=== PATIENT | male | born 1965 | race Caucasian/White ===

== ENCOUNTER 2020-02-06 15:12 | Inpatient (IN) | payer MEDICAID, OTHER ==
[~2020-02-06] VITALS: Ht 180.3 cm; Wt 73.6 kg
[2020-02-06] MEDS ORDERED: RISP0.5T3 PO (15:21)
[2020-02-06 16:34] LABS: BASO # 0.1 10^3/uL (0.0-0.2); BASO % 0.3 % (0.0-1.0); EOS % 0.1 % (0.0-3.0); HEMATOCRIT 40.6 % (42.0-52.0); HEMOGLOBIN 13.2 g/dl (13.5-17.5); LYMPH # 0.5 10^3/uL (1.5-5.0); LYMPH % 2.8 % (24.0-44.0); MEAN CORPUSCULAR HEMOGLOBIN 29.3 pg (27.0-33.0); MEAN CORPUSCULAR HGB CONC 32.5 g/dl (32.0-36.5); MEAN CORPUSCULAR VOLUME 90.2 fl (80.0-96.0); MONO # 1.1 10^3/uL (0.0-0.8); MONO % 6.2 % (0.0-5.0); NEUTROPHILS # 15.9 10^3/uL (1.5-8.5); NEUTROPHILS % 89.6 % (36.0-66.0); PLATELET COUNT, AUTOMATED 300 10^3/uL (150-450); WHITE BLOOD COUNT 17.7 10^3/uL (4.0-10.0)
[2020-02-06 16:58] LABS: ALBUMIN 2.7 GM/DL (3.2-5.2); ALT/SGPT 31 U/L (12-78); BILIRUBIN,DIRECT 0.6 MG/DL (0.0-0.2); BILIRUBIN,TOTAL 1.1 MG/DL (0.2-1.0); BLOOD UREA NITROGEN 33 MG/DL (7-18); CALCIUM LEVEL 9.2 MG/DL (8.5-10.1); CARBON DIOXIDE LEVEL 28 MEQ/L (21-32); CHLORIDE LEVEL 96 MEQ/L (98-107); CREATININE FOR GFR 1.09 MG/DL (0.70-1.30); GLOMERULAR FILTRATION RATE > 60.0 (>56); GLUCOSE, FASTING 166 MG/DL (70-100); POTASSIUM SERUM 4.1 MEQ/L (3.5-5.1); SODIUM LEVEL 130 MEQ/L (136-145); TOTAL PROTEIN 7.4 GM/DL (6.4-8.2)
[2020-02-06] MEDS ORDERED: ceFAZolin SOD 1 GM in D5W MINI-BAG PLUS 50 ML IV ONE (18:00)
[2020-02-06] MEDS ORDERED: NS 1,000 ML IV ONE (18:45)
--- NOTE | 2020-02-06 19:58 | HPEPDOC ---
[facility] Medical History & Physical Date of Admission Feb 06, 2020 Date of Service: Feb 06, 2020 Attending Physician: STEVEN WATKINS MD History and Physical CHIEF COMPLAINT: Right lower extremity swelling and redness HISTORY OF PRESENT ILLNESS: Ed is a 54-year-old male with PMHx of chronic venous insufficiency and an unspecified psychiatric disorder on risperidone, who presented to the ED after being sent over by his wound care provider (Dr. Barbosa) from an outpatient appointment earlier today. On Thursday (02/03), patient reports he began experiencing erythema superior to lower extremity dressings with accompanying decreased sensation over right lower extremity and chills. He subsequently p resented to his previously scheduled outpatient wound care appointment today (02/05), at which point Dr. Barbosa debrided multiple areas of the right lower extremity and subsequently instructed patient to present to the ED for admission and IV antibiotic administration. Patient endorses accompanying nausea with no vomiting over the past few days as well as decreased oral intake. Upon presentation to the ED, patient had leukocytosis (WBC 17.7) with neutrophilia, tachycardia, and had a lactic acid of 2.1. Initial blood cultures 2 were obtained along with a wound culture. One dose of IV Ancef was administered. Patient is being admitted under the care of the hospitalist service for sepsis secondary to right lower extremity cellulitis. PAST MEDICAL HISTORY: Chronic venous insufficiency, follows with wound care as outpatient Unspecified psychiatric disorder; patient reports potentially could be a paranoid disorder, he takes risperidone at home History of left pleural effusion requiring thoracentesis PAST SURGICAL HISTORY: Thoracentesis for left-sided pleural effusion in early Multiple minor debridements of bilateral lower extremities as outpatient with wound care for chronic venous insufficiency SOCIAL HISTORY: Marital status: Single. Resides at home with his mother. No children. Unemployed. Remote history of chewing tobacco use. No current history of tobacco use. [place] ges 3 shots of scotch per month. Denies any illegal drug use currently or previously. FAMILY HISTORY: Father: , unspecified valvular heart disease; congestive heart failure; alcoholism; smoker Mother: Living, unspecified kidney issue Siblings: One sister ALLERGIES: Please see below. REVIEW OF SYSTEMS: REVIEW OF SYSTEMS: CONSTITUTIONAL: Doses intermittent chills. Denies fever, night sweats, recent unintentional change in weight EYES: Denies any visual issues ENT: Denies rhinorrhea, dysphagia, or odynophagia CARDIOVASCULAR: Denies chest pain, chest pressure, or palpitations RESPIRATORY: Denies shortness of breath, cough, purpura, chest pain, hemoptysis GASTROINTESTINAL: Endorses moderate intermittent nausea. Denies abdominal pain, vomiting, hematemesis GENITOURINARY: Denies dysuria or hematuria MSK: Denies myalgias or arthralgias INTEGUMENTARY: Endorses right lower extremity redness, warmth and swelling as mentioned in the HPI NEUROLOGY: Decreased sensation right lower extremity. Denies paresthesias. PSYCHIATRIC: Denies depressed mood or episodes of rigoberto. ENDOCRINE: Endorses some cold intolerance and dry mouth. LYMPHATIC: Denies any new lumps or bumps anywhere HOME MEDICATIONS: Please see below. PHYSICAL EXAMINATION: VITAL SIGNS: Please see below. GENERAL APPEARANCE: Pleasant male. Somewhat disheveled appearance. NAd. A & O x3. HEENT: NC, AT. Matted hair. Non-injected, anicteric sclera. PERRLA. Dry MM. NECK: Trachea midline. No lymphadenopathy. CARDIOVASCULAR: Tachycardic rate, regular rhythm. NL s1, s2. No m/r/g apprec iated. LUNGS: CTA b/l w/ no adventitious breath sounds appreciated. Symmetric chest expansion. Breathing room air. ABDOMEN: Soft, NT and ND. Hypoactive BS. No rigidity or hepatosplenomegaly. MUSCULOSKELETAL: 5/5 muscle strength of UE and LE b/l EXTREMITIES: Warmth and erythema of skin overlying right knee extending proximally up the quad. There is a roughly 5cm diameter ulcer just inferior to rt patella approx 1 in deep with some purulent material. Erythema with skin breakdown and maceration of distal rt LE with fresh areas of debridement and some minor bleeding. Rt pedal edema and erythema. Hands are cold b/l with long fingernails. NEUROLOGICAL: Decreased sensation to light touch of distal RLE. A&O x3. No focal deficits appreciated. Non-dysarthric speech. PSYCHIATRIC: Would go off on minor tangents while speaking at times, but responded appropriately to redirection. LABORATORY DATA: Please see below. MICROBIOLOGY: Please see below. ASSESSMENT & PLAN: 54yo male with h/o chronic venous insufficiency and unspecified psych dx on risperidone presenting with sepsis 2/2 RLE cellulitis. #Sepsis 2/2 RLE cellulitis -Positive SIRS (WBC > 12k plus HR > 100) with left shift and lactic of 2.1 -given one dose of Ancef in ED -will continue with 1gm Ancef IV q8h -Empiric vancomycin added in setting of purulent skin ulceration; will adjust based on culture results -Two initial BCx and wound cx pending -1L NS bolus given with scheduled NS IVF hydration to follow -Advanced wound care consult placed; based on their recommendations, may consider sx consult #Unspecified psychiatric condition -pt reports he's been told he has some form of paranoid disorder; take risperidone as outpt -c/w home risperidone #DVT prophylaxis: SC heparin ATTENDING ATTESTATION: Patient seen and examined independently. Agree with resident's note. Vital Signs Vital Signs Date Time Temp Pulse Resp B/P (MAP) Pulse Ox O2 Delivery O2 Flow Rate FiO2 02/06/20 18:20 135/82 (99) 02/06/20 17:27 103 16 97 02/06/20 15:12 99.7 Room Air Laboratory Data Labs 24H Laboratory Tests 2 02/06/20 16:17: Immature Granulocyte % (Auto) 1.0, Neutrophils (%) (Auto) 89.6H, Lymphocytes (%) (Auto) 2.8L, Monocytes (%) (Auto) 6.2H, Eosinophils (%) (Auto) 0.1, Basophils (%) (Auto) 0.3, Neutrophils # (Auto) 15.9H, Lymphocytes # (Auto) 0.5L, Monocytes # (Auto) 1.1H, Eosinophils # (Auto) 0.0, Basophils # (Auto) 0.1, Nucleated Red Blood Cells % (auto) 0.0, Anion Gap 6L, Glomerular Filtration Rate > 60.0, Calcium Level 9.2, Total Bilirubin 1.1H, Direct Bilirubin 0.6H, Aspartate Amino Transf (AST/SGOT) 36, Alanine Aminotransferase (ALT/SGPT) 31, Alkaline Phosphatase 158H, Total Protein 7.4, Albumin 2.7L, Albumin/Globulin Ratio 0.6 02/06/20 16:18: Lactic Acid Level 2.1*H CBC/BMP Laboratory Tests 02/06/20 16:17 Microbiology Microbiology 02/06/20 Blood Culture, Received Pending 02/06/20 Gram Stain, Received Pending 02/06/20 Wound Culture, Received Pending 02/06/20 Blood Culture, Received Pending Home Medications Scheduled Dimethicone (Vaniply) 70 Gm Oint...g., 0 DOSE TOP DAILY L.acidoph/L.bulg/B.bif/S.therm (Bacid Caplet) 1 Each Tablet, 1 TAB PO WM Levofloxacin (Levaquin) 750 Mg Tablet, 750 MG PO DAILY Risperidone (Risperidone) 0.5 Mg Tablet, 0.5 MG PO QHS Scheduled PRN Acetaminophen (Acetaminophen) 500 Mg Tablet, 1,000 MG PO Q6H PRN for pain Ibuprofen (Ibuprofen) 600 Mg Tablet, 600 MG PO Q6H PRN for PAIN Allergies Coded Allergies: No Known Allergies (Unverified , 02/06/20) A-FIB/CHADSVASC A-FIB History Current/History of A-Fib/PAF?: No Current PO Anticoag Therapy: No RAIN SOSA D.O. Feb 06, 2020 19:58 STEVEN WATKINS MD Feb 29, 2020 13:39
[2020-02-06 20:30] VITALS: BP 135/70
[2020-02-06] MEDS ORDERED: VANCOMYCIN HCL 1,000 MG, VIAL MATE ADAPTER 1 EACH in D5W 250 ML IV ONE (20:30)
[2020-02-06] MEDS ORDERED: VANCOMYCIN HCL 500 MG in D5W MINI-BAG PLUS 100 ML IV ONE (21:30)
[2020-02-06] MEDS: HEPARIN SOD (PORCINE) 5000UNITS/ML 1ML VIAL/SYRINGE SC SCH (22:32)
[2020-02-06] MEDS: NS 1,000 ML IV SCH (22:33)
[2020-02-06] MEDS: risperiDONE 0.5 MG TAB PO SCH (23:02)
[2020-02-07] MEDS: ceFAZolin SOD 1 GM in D5W MINI-BAG PLUS 50 ML IV SCH ×3 (03:02→17:51)
[2020-02-07 06:00] VITALS: BP 116/74
[2020-02-07] MEDS ORDERED: VANCOMYCIN HCL 1,000 MG, VIAL MATE ADAPTER 1 EACH in D5W 250 ML IV SCH (06:00)
[2020-02-07] MEDS: NS 1,000 ML IV SCH ×2 (06:02→16:22)
[2020-02-07 08:17] LABS: ERYTHROCYTE SEDIMENTATION RATE 82 mm/hr (0-20)
[2020-02-07 08:36] LABS: ALT/SGPT 27 U/L (12-78); BILIRUBIN,TOTAL 1.1 MG/DL (0.2-1.0); BLOOD UREA NITROGEN 20 MG/DL (7-18); CALCIUM LEVEL 8.1 MG/DL (8.5-10.1); CARBON DIOXIDE LEVEL 27 MEQ/L (21-32); CHLORIDE LEVEL 102 MEQ/L (98-107); CREATININE FOR GFR 0.75 MG/DL (0.70-1.30); GLOMERULAR FILTRATION RATE > 60.0 (>56); GLUCOSE, FASTING 105 MG/DL (70-100); POTASSIUM SERUM 3.9 MEQ/L (3.5-5.1); SODIUM LEVEL 135 MEQ/L (136-145); TOTAL PROTEIN 5.8 GM/DL (6.4-8.2)
[2020-02-07 08:56] LABS: BASO % 0.2 % (0.0-1.0); EOS # 0.1 10^3/uL (0.0-0.5); EOS % 0.3 % (0.0-3.0); HEMATOCRIT 35.8 % (42.0-52.0); HEMOGLOBIN 11.8 g/dl (13.5-17.5); LYMPH # 0.9 10^3/uL (1.5-5.0); LYMPH % 5.6 % (24.0-44.0); MEAN CORPUSCULAR HEMOGLOBIN 29.4 pg (27.0-33.0); MEAN CORPUSCULAR VOLUME 89.3 fl (80.0-96.0); MONO # 1.4 10^3/uL (0.0-0.8); MONO % 8.8 % (0.0-5.0); NEUTROPHILS # 13.3 10^3/uL (1.5-8.5); PLATELET COUNT, AUTOMATED 301 10^3/uL (150-450); RED BLOOD COUNT 4.01 10^6/uL (4.30-6.10); WHITE BLOOD COUNT 15.8 10^3/uL (4.0-10.0)
[2020-02-07] MEDS: HEPARIN SOD (PORCINE) 5000UNITS/ML 1ML VIAL/SYRINGE SC SCH ×2 (09:55→22:09)
--- NOTE | 2020-02-07 10:57 | REPVR ---
PROCEDURE INFORMATION: Exam: US Duplex Right Lower Extremity Veins, Limited Exam date and time: 02/07/20 (10:46am) Age: 54 years old Clinical indication: Right leg swelling TECHNIQUE: Imaging protocol: Real-time Duplex ultrasound of the Right Lower Extremity with 2-D saravia scale, color Doppler flow and spectral waveform analysis with image documentation. Limited examination was focused on the right lower extremity veins. COMPARISON: No relevant prior studies available FINDINGS: Right deep veins: Unremarkable. The common femoral, femoral, proximal profunda femoral and popliteal veins are patent without thrombus. Normal Doppler waveforms. Normal compressibility and/or augmentation response. Right superficial veins: Unremarkable. Saphenofemoral junction is patent without thrombus. Soft tissues: Unremarkable. IMPRESSION: No evidence of deep vein thrombosis. Electronically signed by: Marychuy Oquendo On 02/07/2020 10:56:37 AM
[2020-02-07] MEDS: ACETAMINOPHEN TAB 650MG DOSE (2X325MG) PO PRN ×2 (13:57→22:09)
[2020-02-07 14:00] VITALS: BP 167/82
[2020-02-07 14:10] VITALS: BP 132/90
[2020-02-07] MEDS: DIMETHICONE 2% OINTMENT(VANICREAM) 70GM TUBE TOP SCH (14:32)
--- NOTE | 2020-02-07 17:39 | IPNPDOC ---
Date Seen The patient was seen on 02/07/20. Progress Note SUBJECTIVE: Ed was seen and examined as morning by the hospitalist service while lying in bed. He feels as though the intensity of his right lower extremity skin redness has decreased overnight and he denies any significant fever or chills. He tolerated his dinner last evening without any issues. He states the nausea he's been dealing with for the past few days, was not present overnight. He denies any current, or overnight, chest pain, palpitations, shortness of breath, cough, abdominal pain, vomiting or diarrhea. OBJECTIVE PHYSICAL EXAMINATION: VITAL SIGNS: Please see below. GENERAL APPEARANCE: Pleasant male. NAD. A & O x3. HEENT: NC, AT. Non-injected, anicteric sclera. MMM. NECK: Trachea midline. No lymphadenopathy. CARDIOVASCULAR: Regular rate, regular rhythm. NL s1, s2. No m/r/g appreciated. LUNGS: CTA b/l w/ no adventitious breath sounds appreciated. Symmetric chest expansion. Breathing room air. ABDOMEN: Soft, NT and ND. Normoactive BS throughout. No rigidity or hepatosplenomegaly. EXTREMITIES: Decreased erythema intensity and warmth of right lower extremity s kin today versus yesterday. Purulent material still present in ulcer just distal to patella. Erythema with skin breakdown and maceration of distal rt LE, as well as Rt pedal edema and erythema, appear relatively unchanged from yesterday's exam. NEUROLOGICAL: A&O x3. No focal deficits appreciated. Non-dysarthric speech. LABORATORY DATA, IMAGING STUDIES, MICROBIOLOGY: -No evidence of deep vein thrombosis on right lower extremity duplex venous ultrasound -Preliminary wound culture results show moderate amount of strep biopsies growth; Gram stain was negative DVT prophylaxis ordered: Yes, patient receiving heparin ASSESSMENT AND PLAN: This is a 54-year-old male with h/o chronic venous insufficiency and unspecified psychiatric disorder who presented to the ED on 02/05 upon outpatient recommen dation of wound care for RLE redness and warmth and was admitted for sepsis secondary to cellulitis. #RLE cellulitis -Continuing with Ancef every 8 hours -We discontinued the vancomycin today after negative MRSA screen result -Right lower extremity venous duplex ultrasound showed no evidence of DVT -Radiographs of tibia and fibula, as well as complete knee x-rays, ordered today to assess for possibility of osteomyelitis; if radiographs are questionable for OM, will follow up with MRI. -If radiographs positive for OM, we will involve infectious disease. If radiographs negative for OM, we'll likely switch patient to oral cephalexin -Patient had telemedicine visit from wound care today (Dr. Barbosa). Wound care placing surgical consult for potential deeper debridement of hematoma underlying ulcer. In addition to addressing ulcer and hematoma, gentle debridement of distal right lower extremity will be performed. Bilateral heel float boots, as well as protein supplementation with meals ordered. -prn acetaminophen added today as patient had some pain and discomfort when dressings were removed. -Preliminary wound culture results showed moderate amount of strep pyogenes growth which is covered by Ancef -No growth after 24 hours on one initial blood culture with other culture still pending -ESR and CRP ordered this morning were significant elevated, yet. WBC trending down. -Microcytic anemia present and is likely secondary to acute infectious process -Initial lactic was 2.1 with 4 hour repeat last evening coming down to 1.4 #Unspecified psychiatric condition -pt reports he's been told he has some form of paranoid disorder; take risperidone as outpt -c/w home risperidone DISPOSITION: Pending evaluation from surgery for possible debridement of underlying ulcer hematoma as well as imaging rule out of possible osteomyelitis VS, I&O, 24H, Fishbone Vital Signs/I&O Vital Signs Date Time Temp Pulse Resp B/P (MAP) Pulse Ox O2 Delivery O2 Flow Rate FiO2 02/07/20 14:10 132/90 (104) 02/07/20 14:00 99.1 96 18 91 Room Air I&O- Last 24 Hours up to 6 AM 02/07/20 06:00 Intake Total 700 ml Output Total 700 ml Balance 0 ml Laboratory Data 24H LABS Laboratory Tests 2 02/06/20 20:54: Lactic Acid Followup at 4 Hours 1.4 02/07/20 05:37: Immature Granulocyte % (Auto) 1.1, Neutrophils (%) (Auto) 84.0H, Lymphocytes (%) (Auto) 5.6L, Monocytes (%) (Auto) 8.8H, Eosinophils (%) (Auto) 0.3, Basophils (%) (Auto) 0.2, Neutrophils # (Auto) 13.3H, Lymphocytes # (Auto) 0.9L, Monocytes # (Auto) 1.4H, Eosinophils # (Auto) 0.1, Basophils # (Auto) 0.0, Nucleated Red Blood Cells % (auto) 0.0, Erythrocyte Sedimentation Rate 82H, Anion Gap 6L, Glomerular Filtration Rate > 60.0, Calcium Level 8.1L, Total Bilirubin 1.1H, Aspartate Amino Transf (AST/SGOT) 39H, Alanine Aminotransferase (ALT/SGPT) 27, Alkaline Phosphatase 133H, C-Reactive Protein, Quantitative 27.20H, Total Protein 5.8#L, Albumin 2.0#L, Albumin/Globulin Ratio 0.5 02/07/20 06:35: Methicillin-Resist S.aureus DNA PCR NOT DETECTED CBC/BMP Laboratory Tests 02/07/20 05:37 Microbiology Microbiology 02/06/20 Blood Culture, Received Pending 02/06/20 Gram Stain - Final, Resulted 02/06/20 Wound Culture - Preliminary, Resulted Streptococcus Pyogenes Grp A 02/06/20 Blood Culture - Preliminary, Resulted No growth after 24 hours . All specim... GME ATTESTATION GME ATTESTATION My faculty preceptor for this patient encounter was physically present during the encounter and was fully available. All aspects of the patient interview, examination, medical decision making process, and medical care plan development were reviewed and approved by the faculty preceptor. The faculty preceptor is aware and concurs with the plan as stated in the body of this note and will attest to such by his/her cosignature. ATTENDING NOTE I, Benito Sunshine, have independently examined this patient and performed my own physical exam, as well as reviewed the documentation and edited where necessary. I have discussed in detail with the resident / student the findings and plan of treatment as documented by the resident / student and edited their note. I agree with their findings and treatment plan and have edited their documentation. I will continue to follow the patient during this hospital stay. RAIN SOSA D.O. Feb 07, 2020 17:39 BENITO SUNSHINE MD Feb 08, 2020 06:50
[2020-02-07 22:00] VITALS: BP 133/85
[2020-02-07] MEDS: risperiDONE 0.5 MG TAB PO SCH (22:08)
[2020-02-08] MEDS: NS 1,000 ML IV SCH ×3 (02:47→22:18)
[2020-02-08] MEDS: ceFAZolin SOD 1 GM in D5W MINI-BAG PLUS 50 ML IV SCH ×3 (02:47→17:32)
[2020-02-08 06:00] VITALS: BP 98/56
[2020-02-08 06:53] LABS: BASO % 0.3 % (0.0-1.0); EOS # 0.1 10^3/uL (0.0-0.5); EOS % 0.5 % (0.0-3.0); HEMATOCRIT 34.6 % (42.0-52.0); HEMOGLOBIN 11.2 g/dl (13.5-17.5); LYMPH # 0.8 10^3/uL (1.5-5.0); LYMPH % 5.9 % (24.0-44.0); MEAN CORPUSCULAR HEMOGLOBIN 29.6 pg (27.0-33.0); MEAN CORPUSCULAR HGB CONC 32.4 g/dl (32.0-36.5); MEAN CORPUSCULAR VOLUME 91.5 fl (80.0-96.0); MONO # 1.1 10^3/uL (0.0-0.8); NEUTROPHILS % 84.2 % (36.0-66.0); PLATELET COUNT, AUTOMATED 312 10^3/uL (150-450); RED BLOOD COUNT 3.78 10^6/uL (4.30-6.10); WHITE BLOOD COUNT 14.2 10^3/uL (4.0-10.0)
[2020-02-08 07:03] LABS: BLOOD UREA NITROGEN 11 MG/DL (7-18); CARBON DIOXIDE LEVEL 27 MEQ/L (21-32); CHLORIDE LEVEL 107 MEQ/L (98-107); GLOMERULAR FILTRATION RATE > 60.0 (>56); GLUCOSE, FASTING 102 MG/DL (70-100); POTASSIUM SERUM 3.9 MEQ/L (3.5-5.1); SODIUM LEVEL 138 MEQ/L (136-145)
[2020-02-08 08:16] LABS: ERYTHROCYTE SEDIMENTATION RATE 85 mm/hr (0-20)
[2020-02-08] MEDS: DIMETHICONE 2% OINTMENT(VANICREAM) 70GM TUBE TOP SCH (09:22)
[2020-02-08] MEDS: HEPARIN SOD (PORCINE) 5000UNITS/ML 1ML VIAL/SYRINGE SC SCH ×2 (09:22→22:17)
[2020-02-08 14:00] VITALS: BP 139/88
--- NOTE | 2020-02-08 18:03 | IPNPDOC ---
Date Seen The patient was seen on 02/08/20. Progress Note SUBJECTIVE: Ed was seen and examined this morning by the hospitalist service while lying in bed. He reports no adverse events overnight. Since admission, he has yet to have a bowel movement. He has been seen by both physical therapy and occupational therapy, but otherwise is staying mostly bed-bound. He is eating and drinking without any issues and denies any nausea. He denies any current or overnight fever, chills, night sweats, shortness of breath, chest pain, palpitations, diarrhea, or vomiting. OBJECTIVE PHYSICAL EXAMINATION: VITAL SIGNS: Please see below. GENERAL APPEARANCE: Pleasant male. NAD. A & O x3. , Responds appropriately to questions and commands. HEENT: NC, AT. Non-injected, anicteric sclera. Appears to have a lazy left eye on exam, particularly when looking upward/superiorly. MMM. NECK: Trachea midline. No lymphadenopathy. CARDIOVASCULAR: Regular rate, regular rhythm. NL s1, s2. No m/r/g appreciated. LUNGS: CTA b/l w/ no adventitious breath sounds appreciated. Symmetric chest expansion. Breathing room air. ABDOMEN: Soft, NT and ND. Normoactive BS throughout. No rigidity or hepatosplenomegaly. EXTREMITIES: There is continued decreased erythema intensity and warmth of right lower extremity skin today from previous days exams. When bandaging was peeled back, purulent material was still present in anterior samuels ulcer just inferior to the patella.. Erythema with skin breakdown and maceration of distal rt LE, as well as Rt pedal edema and erythema. The pedal edema and erythema seems marginally improved from yesterday's exam. There is also areas of skin breakdown on his left lower extremity with scant associated erythema. NEUROLOGICAL: A&O x3. No focal deficits appreciated. Non-dysarthric speech. LABORATORY DATA, IMAGING STUDIES, MICROBIOLOGY: -No evidence of deep vein thrombosis on right lower extremity duplex venous ultrasound -Preliminary wound culture results show moderate amount of strep biopsies growth; Gram stain was negative ASSESSMENT AND PLAN: This is a 54-year-old male with h/o chronic venous insufficiency and unspecified psychiatric disorder who presented to the ED on 02/05 upon outpatient recommendation of wound care for RLE redness and warmth and was admitted for sepsis secondary to cellulitis. #RLE cellulitis -Continuing with Ancef every 8 hours (Day #3) -Vancomycin was discontinued yesterday (02/06,) disease after negative MRSA screen result -Right lower extremity venous duplex ultrasound showed no evidence of DVT -Results of tibia and fibula x-rays, as well as complete knee x-ray for the right lower extremity, all came back negative for osteomyelitis. Our goal is to transfer patient to oral antibiotics soon. In preparation of discharge but we will not do this until he has been evaluated by surgery. -Patient had telemedicine visit from wound care yesterday (Dr. Barbosa). Wound care placing surgical consult for potential deeper debridement of hematoma underlying ulcer. -Hospitalist service has spoken with Dr. Gonzalez of general surgery, who will evaluate the patient tomorrow morning for possible surgical removal of hematoma -prn acetaminophen is on board for pain.. We appreciate the & recommendations from Dr. Gonzalez -Preliminary wound culture results showed moderate amount of strep pyogenes g rowth which is covered by Ancef -No growth after 24 hours on both initial blood cultures -WBC continues to trend down, as does the CRP. -Microcytic anemia present and stable over the last 24 hours. This is likely secondary to acute infectious process #Unspecified psychiatric condition -pt reports he's been told he has some form of paranoid disorder; he takes risperidone as outpt, which we have continued while in the hospital. DISPOSITION: Pending evaluation from surgery for possible debridement of underlying ulcer hematoma as well as transitioning to oral antibiotics VS, I&O, 24H, Fishbone Vital Signs/I&O Vital Signs Date Time Temp Pulse Resp B/P (MAP) Pulse Ox O2 Delivery O2 Flow Rate FiO2 02/08/20 14:00 99.2 77 18 139/88 (105) 99 Room Air I&O- Last 24 Hours up to 6 AM 02/08/20 06:00 Intake Total 2840 ml Output Total 700 ml Balance 2140 ml Laboratory Data 24H LABS Laboratory Tests 2 02/08/20 06:24: Immature Granulocyte % (Auto) 1.1, Neutrophils (%) (Auto) 84.2H, Lymphocytes (%) (Auto) 5.9L, Monocytes (%) (Auto) 8.0H, Eosinophils (%) (Auto) 0.5, Basophils (%) (Auto) 0.3, Neutrophils # (Auto) 12.0H, Lymphocytes # (Auto) 0.8L, Monocytes # (Auto) 1.1H, Eosinophils # (Auto) 0.1, Basophils # (Auto) 0.0, Nucleated Red Blood Cells % (auto) 0.0, Erythrocyte Sedimentation Rate 85H, Anion Gap 4L, Glomerular Filtration Rate > 60.0, Calcium Level 8.0L, C-Reactive Protein, Quantitative 17.90H CBC/BMP Laboratory Tests 02/08/20 06:24 Microbiology Microbiology 02/06/20 Blood Culture - Preliminary, Resulted No Growth after 48 hours. All Specime... 02/06/20 Gram Stain - Final, Complete 02/06/20 Wound Culture - Final, Complete Streptococcus Pyogenes Grp A 02/06/20 Blood Culture - Preliminary, Resulted No Growth after 48 hours. All Specime... GME ATTESTATION GME ATTESTATION My faculty preceptor for this patient encounter was physically present during the encounter and was fully available. All aspects of the patient interview, examination, medical decision making process, and medical care plan development were reviewed and approved by the faculty preceptor. The faculty preceptor is aware and concurs with the plan as stated in the body of this note and will attest to such by his/her cosignature. ATTENDING NOTE I, Benito Diaz, have independently examined this patient and performed my own physical exam, as well as reviewed the documentation and edited where necessary. I have discussed in detail with the resident / student the findings and plan of treatment as documented by the resident / student and edited their note. I agree with their findings and treatment plan and have edited their documentation. I will continue to follow the patient during this hospital stay. RAIN SOSA D.O. Feb 08, 2020 18:03 BENITO DIAZ MD Feb 09, 2020 12:50
[2020-02-08 22:00] VITALS: BP 102/63
[2020-02-08] MEDS: risperiDONE 0.5 MG TAB PO SCH (22:18)
[2020-02-08] MEDS: ACETAMINOPHEN TAB 650MG DOSE (2X325MG) PO PRN (22:28)
[2020-02-09] VITALS (7 sets, daily range): BP systolic 104–154; BP diastolic 58–91
[2020-02-09] MEDS: ceFAZolin SOD 1 GM in D5W MINI-BAG PLUS 50 ML IV SCH ×3 (02:28→17:40)
[2020-02-09 07:21] LABS: BLOOD UREA NITROGEN 9 MG/DL (7-18); CALCIUM LEVEL 8.1 MG/DL (8.5-10.1); CARBON DIOXIDE LEVEL 26 MEQ/L (21-32); CHLORIDE LEVEL 108 MEQ/L (98-107); CREATININE FOR GFR 0.57 MG/DL (0.70-1.30); GLOMERULAR FILTRATION RATE > 60.0 (>56); GLUCOSE, FASTING 96 MG/DL (70-100); SODIUM LEVEL 141 MEQ/L (136-145)
[2020-02-09 07:25] LABS: BASO % 0.3 % (0.0-1.0); EOS # 0.1 10^3/uL (0.0-0.5); EOS % 0.8 % (0.0-3.0); HEMATOCRIT 36.3 % (42.0-52.0); HEMOGLOBIN 11.7 g/dl (13.5-17.5); LYMPH % 7.4 % (24.0-44.0); MEAN CORPUSCULAR HEMOGLOBIN 29.8 pg (27.0-33.0); MEAN CORPUSCULAR HGB CONC 32.2 g/dl (32.0-36.5); MEAN CORPUSCULAR VOLUME 92.4 fl (80.0-96.0); MONO % 7.2 % (0.0-5.0); NEUTROPHILS # 10.9 10^3/uL (1.5-8.5); NEUTROPHILS % 82.8 % (36.0-66.0); PLATELET COUNT, AUTOMATED 364 10^3/uL (150-450); RED BLOOD COUNT 3.93 10^6/uL (4.30-6.10); WHITE BLOOD COUNT 13.2 10^3/uL (4.0-10.0)
[2020-02-09] MEDS: NS 1,000 ML IV SCH (08:31)
[2020-02-09] MEDS: HEPARIN SOD (PORCINE) 5000UNITS/ML 1ML VIAL/SYRINGE SC SCH ×2 (08:31→19:53)
[2020-02-09] MEDS: DIMETHICONE 2% OINTMENT(VANICREAM) 70GM TUBE TOP SCH (08:31)
--- NOTE | 2020-02-09 13:40 | CR.PDOC ---
General Surgery Consultation Date of Consultation 02/09/20 History and Physical CONSULT REPORT FOR: Dr. Diaz (hospitalist service) REASON FOR CONSULTATION: infected leg wound HISTORY OF PRESENT ILLNESS: Patient is a 54 M with long history of right leg swelling from venous hypertension and chronic wound to the right leg and foot being seen in the wound care clinic for intermittent debridements. He is currently admitted to the hospital for cellulitis and soft tissue infection of the right leg. He was last seen at the wound care clinic prior to hospitalization over partial debridement was done. On consult to Dr. Barbosa via telemedicine he recognized it an infected wound on the right leg and I was asked to debride the wound. PAST MEDICAL HISTORY: Chronic venous insufficiency, follows with wound care as outpatient Unspecified psychiatric disorder; patient reports potentially could be a paranoid disorder, he takes risperidone at home History of left pleural effusion requiring thoracentesis PAST SURGICAL HISTORY: Thoracentesis for left-sided pleural effusion in early Multiple minor debridements of bilateral lower extremities as outpatient with wound care for chronic venous insufficiency SOCIAL HISTORY: Marital status: Single. Resides at home with his mother. No children. Unemployed. Remote history of chewing tobacco use. No current history of tobacco use. Averages 3 shots of scotch per month. Denies any illegal drug use currently or previously. FAMILY HISTORY: Father: , unspecified valvular heart disease; congestive heart failure; alcoholism; smoker Mother: Living, unspecified kidney issue Siblings: One sister ALLERGIES: Please see below. HOME MEDICATIONS: Please see below. REVIEW OF SYSTEMS: Patient was noted to have intermittent low-grade fever here in the hospital despite IV antibiotics. Denies unexplained weight loss. Denies history or symptoms of diabetes, heart problems, chest pains or shortness of breath. PHYSICAL EXAMINATION: VITALS SIGNS: Please see below. GENERAL APPEARANCE:Patient seen laying on the bed, appears relatively comfortable SKIN: warm and dry. HEENT: [Normocephalic, atraumatic. [place] palpebral conjunctiva, anicteric sclerae. Lips and mucosa appear moist]. NECK: [Supple, no thyromegaly. No obvious jugular venous distention]. LUNGS: [Clear to auscultation bilaterally. No wheezing appreciated]. HEART: [No chest wall abnormalities. Regular rate and rhythm with no murmurs appreciated]. EXTREMITIES right leg is swollen, left leg looks normal. The right leg is wrapped in a compression stocking. There is roughly about a 5 x 4 cm open wound anteriorly just below the knee on the right leg with foul-smelling purulent drainage as well as necrotic tissues on the wound bed. The skin overall is thin with evidence for chronic venous stasis and venous hypertension with skin darkening. Over the dorsum of the right leg is another slightly shallower of ulcerated wound slightly heaped up edges and mild fibrin deposition also with proteinaceous the cage on the wound opening. The foot is swollen but patient able to move his toes. Denies any discomfort with movement of the toes. ANCILLARIES: . LABORATORY DATA: Please see below. IMAGING STUDIES: . IMPRESSION AND PLAN: Patient has an infected necrotic wound specifically on the right anterior leg also has a separate wound in the right foot with fibrin deposition. I will bring him to the operating room for debridement of both wounds. This is in the background setting of venous hypertension chronic leg swelling the patient is aware of difficulty of healing the wound here. Patient most likely will need follow-up chronically in the wound clinic after discharge home. Vital Signs Vital Signs Date Time Temp Pulse Resp B/P (MAP) Pulse Ox O2 Delivery O2 Flow Rate FiO2 02/09/20 06:00 99.0 68 17 104/58 (73) 100 Room Air I&Os l I&O- Last 24 Hours up to 6 AM 02/09/20 06:00 Intake Total 2280 ml Output Total 2290 ml Balance -10 ml Laboratory Data Labs 24H Laboratory Tests 2 02/09/20 06:32: Immature Granulocyte % (Auto) 1.5, Neutrophils (%) (Auto) 82.8H, Lymphocytes (%) (Auto) 7.4L, Monocytes (%) (Auto) 7.2H, Eosinophils (%) (Auto) 0.8, Basophils (%) (Auto) 0.3, Neutrophils # (Auto) 10.9H, Lymphocytes # (Auto) 1.0L, Monocytes # (Auto) 1.0H, Eosinophils # (Auto) 0.1, Basophils # (Auto) 0.0, Nucleated Red Blood Cells % (auto) 0.0, Anion Gap 7L, Glomerular Filtration Rate > 60.0, Calcium Level 8.1L, C-Reactive Protein, Quantitative 14.80H 02/09/20 11:18: Coronavirus (COVID-19)(PCR) NEGATIVE CBC/BMP Laboratory Tests 02/09/20 06:32 Microbiology Microbiology 02/06/20 Blood Culture - Preliminary, Resulted No Growth after 48 hours. All Specime... 02/06/20 Gram Stain - Final, Complete 02/06/20 Wound Culture - Final, Complete Streptococcus Pyogenes Grp A 02/06/20 Blood Culture - Preliminary, Resulted No Growth after 48 hours. All Specime... Home Medications Scheduled Risperidone (Risperidone) 0.5 Mg Tablet, 0.5 MG PO QHS, (Reported) Allergies Coded Allergies: No Known Allergies (Unverified , 02/06/20) JAKE AVINA MD Feb 09, 2020 13:13
[2020-02-09] MEDS ORDERED: LIDOCAINE 2% 100MG/5ML SDV (FOR ANES.) As Ordered ONE (14:04)
[2020-02-09] MEDS ORDERED: propofoL 200 MG/20 ML VIAL As Ordered ONE ×2 (14:04→14:24)
[2020-02-09] MEDS ORDERED: fentaNYL 100 MCG/2 ML INJECTION (J3010) As Ordered ONE (14:05)
[2020-02-09] MEDS ORDERED: MIDAZOLAM INJ 2MG/2ML VIAL (J2250 PER 1MG) As Ordered ONE (14:05)
[2020-02-09] MEDS ORDERED: BUPIVACAINE HCL 0.25% 30ML VIAL As Ordered ONE (14:21)
[2020-02-09] MEDS ORDERED: LIDOCAINE W/EPINEPHRINE 1% 20ML VIAL As Ordered ONE (14:22)
[2020-02-09] MEDS ORDERED: THROMBIN SOLN 20,000 UNITS KIT As Ordered ONE (14:37)
[2020-02-09] MEDS ORDERED: fentaNYL 100 MCG/2 ML INJECTION (J3010) IV PRN (15:15)
[2020-02-09] MEDS ORDERED: ONDANSETRON 4MG/2ML VIAL IV PRN (15:15)
[2020-02-09] MEDS ORDERED: LR 1,000 ML IV SCH (15:15)
[2020-02-09] MEDS ORDERED: NS 1,000 ML IV SCH (17:00)
[2020-02-09] MEDS: risperiDONE 0.5 MG TAB PO SCH (19:54)
--- NOTE | 2020-02-09 20:26 | IPNPDOC ---
Date Seen The patient was seen on 02/09/20. Progress Note SUBJECTIVE: Ed was seen and examined this morning by the hospitalist service while lying in bed. He was seen earlier this morning by general surgery with a plan for likely surgical debridement of his right lower extremity wounds later today. He denies any current or overnight fever, chills, or night sweats. He is eating and drinking without any issues. He is mostly been bedbound, only getting around a little bit with physical therapy using a walker. He has not had a bowel movement since admission. He continues to use bedside urinal. He denies any recent chest pain, shortness of breath, palpitations, nausea, or vomiting. He denies any numbness or paresthesias of his lower extremities. OBJECTIVE PHYSICAL EXAMINATION: VITAL SIGNS: Please see below. GENERAL APPEARANCE: Pleasant male lying in bed. NAD. A & O x3. Responds appropriately to questions and commands. HEENT: NC, AT. Non-injected, anicteric sclera. Appears to have a lazy left eye on exam, particularly when looking upward/superiorly. MMM. NECK: Trachea midline. No lymphadenopathy. CARDIOVASCULAR: Regular rate, regular rhythm. NL s1, s2. No m/r/g appreciated. LUNGS: CTA b/l w/ no adventitious breath sounds appreciated. Symmetric chest expansion. Breathing room air. ABDOMEN: Soft, NT and ND. Normoactive BS throughout. No rigidity or hepatosplenomegaly. EXTREMITIES: Overall, his right lower extremity continues to improve on a daily basis. The extent of affected skin is decreased substantially today versus prior days, and he continues to have decreased warmth and intensity of erythema. When bandaging was peeled back, purulent material was still present in anterior samuels ulcer just inferior to the patella.. Erythema with skin breakdown and maceration of distal rt LE, as well as Rt pedal edema. The pedal erythema is improved from yesterday's exam. There is also areas of skin breakdown on his left lower ex tremity with scant associated erythema. NEUROLOGICAL: A&O x3. No focal deficits appreciated. Non-dysarthric speech. LABORATORY DATA, IMAGING STUDIES, MICROBIOLOGY: -No evidence of deep vein thrombosis on right lower extremity duplex venous ultrasound -Preliminary wound culture results show moderate amount of strep biopsies growth; Gram stain was negative ASSESSMENT AND PLAN: This is a 54-year-old male with h/o chronic venous insufficiency and unspecified psychiatric disorder who presented to the ED on 02/05 upon outpatient recommendation of wound care for RLE redness and warmth and was admitted for sepsis secondary to cellulitis. #RLE cellulitis -Clinically, continues to improve on a daily basis and patient remains afebrile with downtrending WBC -We will continue with Ancef every 8 hours (Day #4), as surgical debridement by general surgery is planned for sometime later today. After debridement, we will consult the infectious disease team for further recommendations with goals of transitioning to oral antibiotics for discharge; *hospitalist service sincerely appreciate the input and recommendations from both general surgery and infectious disease -Vancomycin was discontinued on 02/06 after negative MRSA screen result -Right lower extremity venous duplex ultrasound showed no evidence of DVT -Patient was previously seen via telemedicine by wound care, whom he follows with on the outpatient basis regularly, who suggested surgical debridement -c/w prn acetaminophen for pain -Preliminary wound culture results showed moderate amount of strep pyogenes growth which is covered by Ancef -No growth after 48 hours on both initial blood cultures -WBC continues to trend down, as does the CRP. -Normocytic anemia present and stable over the last 48 hours - - likely secondary to acute infectious process #Unspecified psychiatric condition -pt reports he's been told he has some form of paranoid disorder; he takes risperidone as outpt, which we have continued while in the hospital. DISPOSITION: Pending surgical debridement later today and transition from IV to oral antibiotics VS, I&O, 24H, Fishbone Vital Signs/I&O Vital Signs Date Time Temp Pulse Resp B/P (MAP) Pulse Ox O2 Delivery O2 Flow Rate FiO2 02/09/20 19:15 98.6 89 17 114/72 (86) 100 Room Air 02/09/20 15:00 2 I&O- Last 24 Hours up to 6 AM 02/09/20 06:00 Intake Total 2280 ml Output Total 2290 ml Balance -10 ml Laboratory Data 24H LABS Laboratory Tests 2 02/09/20 06:32: Immature Granulocyte % (Auto) 1.5, Neutrophils (%) (Auto) 82.8H, Lymphocytes (%) (Auto) 7.4L, Monocytes (%) (Auto) 7.2H, Eosinophils (%) (Auto) 0.8, Basophils (%) (Auto) 0.3, Neutrophils # (Auto) 10.9H, Lymphocytes # (Auto) 1.0L, Monocytes # (Auto) 1.0H, Eosinophils # (Auto) 0.1, Basophils # (Auto) 0.0, Nucleated Red Blood Cells % (auto) 0.0, Anion Gap 7L, Glomerular Filtration Rate > 60.0, Calcium Level 8.1L, C-Reactive Protein, Quantitative 14.80H 02/09/20 11:18: Coronavirus (COVID-19)(PCR) NEGATIVE CBC/BMP Laboratory Tests 02/09/20 06:32 Microbiology Microbiology 02/09/20 Gram Stain, Received Pending 02/09/20 Wound Culture, Received Pending 02/09/20 Anaerobic Culture, Received Pending 02/09/20 Gram Stain, Received Pending 02/09/20 Wound Culture, Received Pending 02/09/20 Anaerobic Culture, Received Pending 02/06/20 Blood Culture - Preliminary, Resulted No Growth after 72 hours. All specime... 02/06/20 Gram Stain - Final, Complete 02/06/20 Wound Culture - Final, Complete Streptococcus Pyogenes Grp A 02/06/20 Blood Culture - Preliminary, Resulted No Growth after 72 hours. All specime... GME ATTESTATION GME ATTESTATION My faculty preceptor for this patient encounter was physically present during the encounter and was fully available. All aspects of the patient interview, examination, medical decision making process, and medical care plan development were reviewed and approved by the faculty preceptor. The faculty preceptor is aware and concurs with the plan as stated in the body of this note and will attest to such by his/her cosignature. ATTENDING NOTE I, Benito Sunshine, have independently examined this patient and performed my own physical exam, as well as reviewed the documentation and edited where necessary. I have discussed in detail with the resident / student the findings and plan of treatment as documented by the resident / student and edited their note. I agree with their findings and treatment plan and have edited their documentation. I will continue to follow the patient during this hospital stay. RAIN SOSA D.O. Feb 09, 2020 20:26 BENITO SUNSHINE MD Feb 10, 2020 07:14
[2020-02-10] MEDS: ceFAZolin SOD 1 GM in D5W MINI-BAG PLUS 50 ML IV SCH ×2 (01:11→09:01)
[2020-02-10 06:00] VITALS: BP 115/71
[2020-02-10 07:33] LABS: BASO % 0.4 % (0.0-1.0); EOS # 0.1 10^3/uL (0.0-0.5); EOS % 1.2 % (0.0-3.0); HEMATOCRIT 34.7 % (42.0-52.0); LYMPH # 1.2 10^3/uL (1.5-5.0); LYMPH % 11.7 % (24.0-44.0); MEAN CORPUSCULAR HEMOGLOBIN 29.1 pg (27.0-33.0); MEAN CORPUSCULAR HGB CONC 31.7 g/dl (32.0-36.5); MEAN CORPUSCULAR VOLUME 91.8 fl (80.0-96.0); MONO # 0.7 10^3/uL (0.0-0.8); MONO % 6.4 % (0.0-5.0); NEUTROPHILS # 8.2 10^3/uL (1.5-8.5); PLATELET COUNT, AUTOMATED 450 10^3/uL (150-450); RED BLOOD COUNT 3.78 10^6/uL (4.30-6.10); WHITE BLOOD COUNT 10.4 10^3/uL (4.0-10.0)
[2020-02-10 07:55] LABS: BLOOD UREA NITROGEN 6 MG/DL (7-18); CALCIUM LEVEL 8.4 MG/DL (8.5-10.1); CARBON DIOXIDE LEVEL 29 MEQ/L (21-32); CHLORIDE LEVEL 107 MEQ/L (98-107); CREATININE FOR GFR 0.58 MG/DL (0.70-1.30); GLOMERULAR FILTRATION RATE > 60.0 (>56); GLUCOSE, FASTING 97 MG/DL (70-100); SODIUM LEVEL 141 MEQ/L (136-145)
--- NOTE | 2020-02-10 08:00 | ROOPDOC ---
[facility] Report Of Operation Report of Operation DATE OF PROCEDURE: 02/09/20 PREPROCEDURE DIAGNOSES: infected ulcerated wound on right anterior lower leg and right foot, venous hypertensiion. POSTPROCEDURE DIAGNOSES: infected, ulcerated wound on right anterior lower leg to surface of muscles, infected ulcerated wound on right foot, to surface of tendons, venous hypertension. PROCEDURE: Excisional debridement of necrotic tissues, drainage of subcutaneous abscess on right anteriior lower leg, excisional debridement of necrotic tissues on dorsum of foot. SURGEON: Guido Gonzalez MD CARTON LINER: ANESTHESIA: Monitored Anesthesia Care with local anesthesia (1% lidocaine with epinephrine/1/4% Marcaine). ESTIMATED BLOOD LOSS: Approximately 30 mL. COMPLICATIONS: none. REMARKS: Patient is a 54-year-old male with chronic leg swelling, the right side worse than the left, chronic venous stasis wounds on the right leg currently admitted in the hospital for infected necrotic ulcerated wound on the leg and the right foot. PROCEDURE NOTE: Initial wound measurements on the anterior leg ulcerated wound is 6 x 4 x 1 cm with a surrounding 2 cm area of ischemic/necrotic edges, purulent drainage and necrotic wound bed. Final measurements after debridement is 8 x 6 x 1.5 cm with undermining of up to 2.5 cm laterally and superiorly laterally. The foot is swollen with an ulcerated necrotic wound measuring 5 x 4 cm initially covered with necrotic skin and small amount of brownish drainage. Final measurement is 6 x 5 cm with 2-1/2 cm depth down to the surface of the tendon which was not well defined due to the chronic granulation tissue on the wound bed without much undermining noted on the skin periphery.. DESCRIPTION OF PROCEDURE: Patient has been receiving Levaquin IV preoperatively for wound cultures obstreperous [place] on the wound was brought to the operating room, placed supine on the table. Monitoring leads placed and oxygen provided via facemask. Monitored anesthesia care started. His right foot and leg was prepped and draped in the usual sterile fashion up to the mid thigh area.We paused for a surgical timeout using both pre-incision safety checklist to verify correct patient, procedure site and additional clinical information prior to beginning the procedure Wound description as above. I started with the right anterior leg ulcerated wound which is just below the right knee. There is bogginess surrounding the wound and went pressing on this purulent drainage can be observed, but off at likewise necrotic appearing skin superiorly and laterally. This is covered with necrotic and liquefied adipose tissue. This was circumferentially infiltrated with local anesthesia. Using a 15 blade knife as well as Bovie cautery the necrotic skin as well as the necrotic subcutaneous tissue was sharply debrided. There is further necrotic and liquefied adipose tissue most prominent laterally they try the conservative skin on top of that area so there is about a 2 and after 3 cm undermining of the skin over that area after full debridement of the necrotic tissue was done. This came down to the level of the overlying muscle fascia but I did not come through the fascia or through the muscles. I then used a scratch pad to further debride the wound bed. Thrombin spray was then used for hemostasis and this was packed with moistened saline gauze temporarily. I then came down to the dorsum of the foot where he has a circumferential ulcerated wound covered with necrotic skin broken up on the edges. Again this was infiltrated with local anesthesia. The necrotic skin was excised with a 15 blade scalpel and immediately after pulling up on the skin the rest of the attached adipose tissue also came undone. This seems to come down to the level off the surface of the tendon. The tendon itself was not visible as this is invested with loose granulation tissue which points out that the chronicity of the wound. There was not much skin undermining the edges were freshened off both with the Bovie cautery as well as with the scratch pad as well as the wound bed. Again this was packed with moistened saline gauze after spraying this with thrombin. After insuring adequate hemostasis site and packed the wound with alginate. The backside of the ankle with healing stasis ulcer wounds were covered with Telfa. Kerlix roll was then used as well as Coban for compression. Patient tolerated the procedure well. He was awakened and brought to recovery room in stable condition.. GUIDO GONZALEZ MD Feb 10, 2020 08:00
[2020-02-10] MEDS: DIMETHICONE 2% OINTMENT(VANICREAM) 70GM TUBE TOP SCH (09:01)
[2020-02-10] MEDS: HEPARIN SOD (PORCINE) 5000UNITS/ML 1ML VIAL/SYRINGE SC SCH ×2 (09:01→20:41)
[2020-02-10 14:00] VITALS: BP 117/77
[2020-02-10] MEDS: AMPICILLIN SOD 2 GM in D5W MINI-BAG PLUS 100 ML IV SCH ×2 (16:48→20:41)
[2020-02-10] MEDS: risperiDONE 0.5 MG TAB PO SCH (20:40)
--- NOTE | 2020-02-10 20:57 | IPNPDOC ---
Date Seen The patient was seen on 02/10/20. Progress Note SUBJECTIVE: Ed was seen and examined this morning by the hospitalist service while lying in bed. He reports no adverse events overnight and had his first BM since admission using bedside commode. He continues to eat and drink without any issues. He remains bedbound with the exception of when OBJECTIVE PHYSICAL EXAMINATION: VITAL SIGNS: Please see below. GENERAL APPEARANCE: Pleasant male lying in bed. NAD. A & O x3. HEENT: NC, AT. Non-injected, anicteric sclera. Appears to have a lazy left eye on exam, particularly when looking upward/superiorly. MMM. NECK: Trachea midline. No lymphadenopathy. CARDIOVASCULAR: Regular rate, regular rhythm. NL s1, s2. No m/r/g appreciated. LUNGS: CTA b/l w/ no adventitious breath sounds appreciated. Symmetric chest expansion. Breathing room air. ABDOMEN: Soft, NT and ND. Normoactive BS throughout. No rigidity or hepatosplenomegaly. EXTREMITIES: Overall, his right lower extremity continues to improve. There is little to no erythema over his right thigh anymore. Bandage dressing over right leg was removed, revealing a 7x8cm ulcer just inferior to patella, with necrotic tissue. There is also a 4x6 cm ulcer over dorsum of right foot with tendons of second through fourth toes exposed. There is also areas of skin breakdown on his left lower extremity with scant associated erythema. NEUROLOGICAL: A&O x3. No focal deficits appreciated. Non-dysarthric speech. LABORATORY DATA, IMAGING STUDIES, MICROBIOLOGY: Please see below. ASSESSMENT AND PLAN: This is a 54-year-old male with h/o chronic venous insufficiency and unspecified psychiatric disorder who presented to the ED on 02/05 upon outpatient recommendation of wound care for RLE redness and warmth and was admitted for sepsis secondary to cellulitis. #RLE cellulitis -pt was seen and examined today by infectious disease service who, in light of significant rle ulcers, pt remain in the hospital on IV abx -Underwent surgical debridement in OR with general surgery (Dr. Gonzalez) on 02/08 -Clinically, his cellulitis continues to improve on a daily basis and patient remains afebrile with downtrending WBC -We will continue with Ancef every 8 hours (Day #5) per the recommendations of ID -*Hospitalist service sincerely appreciate the input and recommendations from both general surgery and infectious disease -Vancomycin was discontinued on 02/06 after negative MRSA screen result -Right lower extremity venous duplex ultrasound showed no evidence of DVT -Patient was previously seen via telemedicine by wound care, whom he follows with on the outpatient basis regularly, who suggested surgical debridement -c/w prn acetaminophen for pain -Preliminary wound culture results showed moderate amount of strep pyogenes growth which is covered by Ancef -No growth after 48 hours on both initial blood cultures -WBC continues to trend down, as does the CRP. -Normocytic anemia present and stable over the last 48 hours - - likely secondary to acute infectious process #Unspecified psychiatric condition -pt reports he's been told he has some form of paranoid disorder; he takes risperidone as outpt, which we have continued while in the hospital. DISPOSITION: Pending status of significant rle ulcers wounds with continued IV ABx VS, I&O, 24H, Fishbone Vital Signs/I&O Vital Signs Date Time Temp Pulse Resp B/P (MAP) Pulse Ox O2 Delivery O2 Flow Rate FiO2 02/10/20 14:00 98.4 82 18 117/77 (90) 97 Room Air 02/09/20 15:00 2 I&O- Last 24 Hours up to 6 AM 02/10/20 06:00 Intake Total 2230 ml Output Total 2205 ml Balance 25 ml Laboratory Data 24H LABS Laboratory Tests 2 02/10/20 07:10: Immature Granulocyte % (Auto) 1.3, Neutrophils (%) (Auto) 79.0H, Lymphocytes (%) (Auto) 11.7L, Monocytes (%) (Auto) 6.4H, Eosinophils (%) (Auto) 1.2, Basophils (%) (Auto) 0.4, Neutrophils # (Auto) 8.2, Lymphocytes # (Auto) 1.2L, Monocytes # (Auto) 0.7, Eosinophils # (Auto) 0.1, Basophils # (Auto) 0.0, Nucleated Red Blood Cells % (auto) 0.0, Anion Gap 5L, Glomerular Filtration Rate > 60.0, Calcium Level 8.4L, C-Reactive Protein, Quantitative 13.50H CBC/BMP Laboratory Tests 02/10/20 07:10 Microbiology Microbiology 02/09/20 Gram Stain - Final, Resulted 02/09/20 Wound Culture - Preliminary, Resulted Streptococcus Pyogenes Grp A 02/09/20 Anaerobic Culture, Resulted Pending 02/09/20 Gram Stain - Final, Resulted 02/09/20 Wound Culture - Preliminary, Resulted Streptococcus Pyogenes Grp A 02/09/20 Anaerobic Culture, Resulted Pending 02/06/20 Blood Culture - Preliminary, Resulted No Growth after 72 hours. All specime... 02/06/20 Gram Stain - Final, Complete 02/06/20 Wound Culture - Final, Complete Streptococcus Pyogenes Grp A 02/06/20 Blood Culture - Preliminary, Resulted No Growth after 72 hours. All specime... GME ATTESTATION GME ATTESTATION My faculty preceptor for this patient encounter was physically present during the encounter and was fully available. All aspects of the patient interview, examination, medical decision making process, and medical care plan development were reviewed and approved by the faculty preceptor. The faculty preceptor is aware and concurs with the plan as stated in the body of this note and will attest to such by his/her cosignature. ATTENDING NOTE I, Benito Sunshine, have independently examined this patient and performed my own physical exam, as well as reviewed the documentation and edited where necessary. I have discussed in detail with the resident / student the findings and plan of treatment as documented by the resident / student and edited their note. I agree with their findings and treatment plan and have edited their documentation. I will continue to follow the patient during this hospital stay. RAIN SOSA D.O. Feb 10, 2020 20:57 BENITO SUNSHINE MD Feb 11, 2020 15:10
[2020-02-10 22:00] VITALS: BP 126/74
[2020-02-11] MEDS: AMPICILLIN SOD 2 GM in D5W MINI-BAG PLUS 100 ML IV SCH ×4 (03:34→21:02)
[2020-02-11 06:00] VITALS: BP 125/76
[2020-02-11 07:04] LABS: BASO % 0.3 % (0.0-1.0); EOS # 0.1 10^3/uL (0.0-0.5); EOS % 1.2 % (0.0-3.0); HEMATOCRIT 37.3 % (42.0-52.0); HEMOGLOBIN 11.6 g/dl (13.5-17.5); LYMPH # 1.2 10^3/uL (1.5-5.0); LYMPH % 11.2 % (24.0-44.0); MEAN CORPUSCULAR HEMOGLOBIN 28.9 pg (27.0-33.0); MEAN CORPUSCULAR HGB CONC 31.1 g/dl (32.0-36.5); MEAN CORPUSCULAR VOLUME 92.8 fl (80.0-96.0); MONO # 0.6 10^3/uL (0.0-0.8); MONO % 5.6 % (0.0-5.0); NEUTROPHILS # 8.4 10^3/uL (1.5-8.5); NEUTROPHILS % 80.8 % (36.0-66.0); PLATELET COUNT, AUTOMATED 497 10^3/uL (150-450); RED BLOOD COUNT 4.02 10^6/uL (4.30-6.10); WHITE BLOOD COUNT 10.4 10^3/uL (4.0-10.0)
[2020-02-11 07:32] LABS: BLOOD UREA NITROGEN 6 MG/DL (7-18); C REACTIVE PROTEIN QUANTITATIV 8.41 MG/DL (0.00-0.30); CALCIUM LEVEL 8.5 MG/DL (8.5-10.1); CARBON DIOXIDE LEVEL 30 MEQ/L (21-32); CHLORIDE LEVEL 106 MEQ/L (98-107); CREATININE FOR GFR 0.68 MG/DL (0.70-1.30); GLOMERULAR FILTRATION RATE > 60.0 (>56); GLUCOSE, FASTING 96 MG/DL (70-100); POTASSIUM SERUM 3.7 MEQ/L (3.5-5.1); SODIUM LEVEL 141 MEQ/L (136-145)
[2020-02-11] MEDS: HEPARIN SOD (PORCINE) 5000UNITS/ML 1ML VIAL/SYRINGE SC SCH ×2 (09:28→21:03)
[2020-02-11] MEDS: DIMETHICONE 2% OINTMENT(VANICREAM) 70GM TUBE TOP SCH (09:28)
[2020-02-11 14:00] VITALS: BP 138/89
--- NOTE | 2020-02-11 14:30 | IPNPDOC ---
Date Seen The patient was seen on 02/11/20. Progress Note SUBJECTIVE: Ed was seen and examined this morning by the hospitalist service while lying in bed. He denies any current or overnight fever, chills, or night sweats. He continues to eat and drink without any issues. He denies any lower extremity numbness or paresthesias, but does have pain and discomfort when his rle dressings are changed and the skin around his ulcers is touched. He has been sw itched over to IV ampicillin from IV ancef by the infectious disease service after cultures from both rle ulcers grew GAS. He has remained mostly bed bound since admission, using a bedisde urinal and commode. He denies any current or overnight chest pain, chest pressure, palpitations, nausea, vomiting, or diarrhea. OBJECTIVE PHYSICAL EXAMINATION: VITAL SIGNS: Please see below. GENERAL APPEARANCE: Pleasant male lying in bed. NAD. A & O x3. HEENT: NC, AT. Non-injected, anicteric sclera. Appears to have a lazy left eye on exam, particularly when looking upward/superiorly. Unkempt hair. NECK: Trachea midline. No lymphadenopathy. CARDIOVASCULAR: Regular rate, regular rhythm. NL s1, s2. No m/r/g appreciated. LUNGS: CTA b/l w/ no adventitious breath sounds appreciated. Symmetric chest expansion. Breathing room air. ABDOMEN: Soft, NT and ND. Normoactive BS throughout. No rigidity or hepatosplenomegaly. EXTREMITIES: There is binging over the right lower extremity from just inferior to the patella running to the metatarsal-phalangeal joint. When the dressing is partially pulled back to reveal the status of his 2 ulcers, this elicits significant pain. There is no foul smell emanating from the ulcers. His proximal right lower extremity running distally to the patella shows in all, but complete resolution of his cellulitis. Onychomycosis present over toenails. Bilateral popliteal pulses intact. Adequate capillary refill of right foot. There is some mild erythema of the distal left lower extremity with skin scaling and some breakdown. Right pedal swelling with no other lower extremity edema appreciated. NEUROLOGICAL: A&O x3. No focal deficits appreciated. Non-dysarthric speech. LABORATORY DATA, IMAGING STUDIES, MICROBIOLOGY: Please see below. ASSESSMENT AND PLAN: This is a 54-year-old male with h/o chronic venous insufficiency and unspecified psychiatric disorder who presented to the ED on 02/05 upon outpatient recommendation of wound care for RLE redness and warmth and was admitted for sepsis secondary to cellulitis.. He was started on both IV Ancef and vancomycin, switching to solely Ancef after MRSA screen was negative. On 02/08, he underwent surgical debridement of the right lower extremity, particularly two necrotic ulcers. Wound cultures from ulcers grew group A strep, and patient was switched off of IV Ancef to IV ampicillin on afternoon of 02/09. #Right lower extremity ulcers, positive for group A streptococcus -Wound cultures from 02/08 surgical debridement in the OR with Dr. Gonzalez revealed growth of group A strep; as a result, infectious disease service switched patient off of IV Ancef in favor of IV ampicillin on the afternoon of 02/09. -Today hagen day #2 of IV ampicillin. He is s/p 5 days of IV Ancef from 02/05- 02/09 -Upon thorough evaluation of his right lower extremity ulcers on 02/09, infectious disease service recommends the patient remain in the hospital receiving IV antibiotics -Underwent surgical debridement in OR with general surgery (Dr. Gonzalez) on 02/08 -*Hospitalist service sincerely appreciate the input and recommendations from both general surgery and infectious disease #RLE cellulitis -Clinically, his cellulitis is markedly improved from 02/05 admission. He remains afebrile and WBC has decreased throughout the week -We will continue with Ancef every 8 hours (Day #5) per the recommendations of ID -Vancomycin was discontinued on 02/06 after negative MRSA screen result -Right lower extremity venous duplex ultrasound showed no evidence of DVT -Patient was previously seen via telemedicine by wound care, whom he follows with on the outpatient basis regularly, who suggested surgical debridement -c/w prn acetaminophen for pain -No growth after 5 days on both initial blood cultures #Normocytic anemia -present and stable over the last 72 hours - - likely secondary to acute infectious process #Unspecified psychiatric condition -pt reports he's been told he has some form of paranoid disorder; he takes ri speridone as outpt, which we have continued while in the hospital. DISPOSITION: Pending status of significant rle ulcers wounds with continued IV ABx VS, I&O, 24H, Fishbone Vital Signs/I&O Vital Signs Date Time Temp Pulse Resp B/P (MAP) Pulse Ox O2 Delivery O2 Flow Rate FiO2 02/11/20 06:00 98.1 80 16 125/76 (92) 98 Room Air 02/09/20 15:00 2 I&O- Last 24 Hours up to 6 AM 02/11/20 06:00 Intake Total 1460 ml Output Total 1600 ml Balance -140 ml Laboratory Data 24H LABS Laboratory Tests 2 02/11/20 06:26: Immature Granulocyte % (Auto) 0.9, Neutrophils (%) (Auto) 80.8H, Lymphocytes (%) (Auto) 11.2L, Monocytes (%) (Auto) 5.6H, Eosinophils (%) (Auto) 1.2, Basophils (%) (Auto) 0.3, Neutrophils # (Auto) 8.4, Lymphocytes # (Auto) 1.2L, Monocytes # (Auto) 0.6, Eosinophils # (Auto) 0.1, Basophils # (Auto) 0.0, Nucleated Red Blood Cells % (auto) 0.0, Anion Gap 5L, Glomerular Filtration Rate > 60.0, Calcium Level 8.5, C-Reactive Protein, Quantitative 8.41H CBC/BMP Laboratory Tests 02/11/20 06:26 Microbiology Microbiology 02/09/20 Gram Stain - Final, Complete 02/09/20 Wound Culture - Final, Complete Streptococcus Pyogenes Grp A 02/09/20 Anaerobic Culture - Final, Complete 02/09/20 Gram Stain - Final, Resulted 02/09/20 Wound Culture - Preliminary, Resulted Streptococcus Pyogenes Grp A 02/09/20 Anaerobic Culture, Resulted Pending 02/06/20 Blood Culture - Preliminary, Resulted No Growth after 72 hours. All specime... 02/06/20 Gram Stain - Final, Complete 02/06/20 Wound Culture - Final, Complete Streptococcus Pyogenes Grp A 02/06/20 Blood Culture - Preliminary, Resulted No Growth after 72 hours. All specime... GME ATTESTATION GME ATTESTATION My faculty preceptor for this patient encounter was physically present during the encounter and was fully available. All aspects of the patient interview, examination, medical decision making process, and medical care plan development were reviewed and approved by the faculty preceptor. The faculty preceptor is aware and concurs with the plan as stated in the body of this note and will attest to such by his/her cosignature. ATTENDING NOTE I, Benito Diaz, have independently examined this patient and performed my own physical exam, as well as reviewed the documentation and edited where necessary. I have discussed in detail with the resident / student the findings and plan of treatment as documented by the resident / student and edited their note. I agree with their findings and treatment plan and have edited their documentation. I will continue to follow the patient during this hospital stay. RAIN SOSA D.O. Feb 11, 2020 14:30 BENITO DIAZ MD Feb 12, 2020 08:46
[2020-02-11] MEDS: PERCOCET 5MG/325MG TAB PO PRN (17:52)
[2020-02-11] MEDS: risperiDONE 0.5 MG TAB PO SCH (21:02)
[2020-02-11 22:00] VITALS: BP 119/77
[2020-02-12] MEDS: AMPICILLIN SOD 2 GM in D5W MINI-BAG PLUS 100 ML IV SCH (04:06)
[2020-02-12 06:00] VITALS: BP 114/67
[2020-02-12] MEDS ORDERED: CEFEPIME HCL 2 GM in D5W MINI-BAG PLUS 50 ML IV SCH (07:15)
[2020-02-12 08:02] LABS: BASO % 0.3 % (0.0-1.0); EOS # 0.1 10^3/uL (0.0-0.5); EOS % 0.9 % (0.0-3.0); HEMATOCRIT 38.4 % (42.0-52.0); HEMOGLOBIN 12.3 g/dl (13.5-17.5); LYMPH # 1.2 10^3/uL (1.5-5.0); LYMPH % 10.6 % (24.0-44.0); MEAN CORPUSCULAR HEMOGLOBIN 29.6 pg (27.0-33.0); MEAN CORPUSCULAR VOLUME 92.3 fl (80.0-96.0); MONO # 0.6 10^3/uL (0.0-0.8); MONO % 5.1 % (0.0-5.0); NEUTROPHILS # 9.1 10^3/uL (1.5-8.5); NEUTROPHILS % 82.5 % (36.0-66.0); PLATELET COUNT, AUTOMATED 538 10^3/uL (150-450); RED BLOOD COUNT 4.16 10^6/uL (4.30-6.10)
[2020-02-12 08:34] LABS: BLOOD UREA NITROGEN 6 MG/DL (7-18); C REACTIVE PROTEIN QUANTITATIV 5.85 MG/DL (0.00-0.30); CALCIUM LEVEL 8.7 MG/DL (8.5-10.1); CARBON DIOXIDE LEVEL 30 MEQ/L (21-32); CHLORIDE LEVEL 104 MEQ/L (98-107); CREATININE FOR GFR 0.69 MG/DL (0.70-1.30); GLOMERULAR FILTRATION RATE > 60.0 (>56); GLUCOSE, FASTING 80 MG/DL (70-100); POTASSIUM SERUM 4.7 MEQ/L (3.5-5.1); SODIUM LEVEL 139 MEQ/L (136-145)
[2020-02-12] MEDS: HEPARIN SOD (PORCINE) 5000UNITS/ML 1ML VIAL/SYRINGE SC SCH ×2 (09:11→20:52)
[2020-02-12] MEDS: DIMETHICONE 2% OINTMENT(VANICREAM) 70GM TUBE TOP SCH (09:12)
--- NOTE | 2020-02-12 09:18 | IPNPDOC ---
Text Note Date of Service The patient was seen on 02/12/20. NOTE Subjective: Patient is a 54-year-old male with a PMHx of Chronic Venous insufficiency, Unspecified psychiatric disorder, Hx of L pleural effusion (s/p Drainage), who was presented to the hospital on 02/06/2020 with right leg worsening ulcers with surrounding warmth, redness and tenderness. Patient was found to have cellulitis on top of a chronic ulcer. He was admitted to the hospital service for further evaluation and treatment. Problem hospital course patient has had advanced wound care consultation infectious disease consultation and general surgery consultation. Patient was seen and examined at the bedside. Currently, patient reports he has had an uneventful evening denies any chest pain, shortness of breath or palpitations. Denies any nausea, vomiting, abdominal pain, diarrhea, or urinary discomfort. Reports that his right leg is beginning to feel a little more painful, however, the redness has gone down significantly. Objective: Vitals (See below) General: Lying in bed, appears comfortable, AAOx3 HEENT: NC, AT CVS: +S1S2 Lungs: Fair air entry b/l, auscultation is without rhonchi, rales or wheezing Abdomen: Soft, ND, NT Extremities: Right leg with dressing intact; area of erythema has regressed. No significant tenderness outside of ulceration; s/p debridement Assessment and plan: Acute on Chronic Ulcer of RLE / Cellulitis - Patient initially presented to the ER on 02/05 at the direction of wound care - Patient meets hemodynamically stable and afebrile - Area cellulitis has improved significantly; was appear to be improving; however additional debridement may be required - Leukocytosis, improving CRP trending down - Blood cultures 02/05: No growth at 5 days - Wound cultures 02/08: Streptococcus Pyogenes, Pseudomonas aeruginosa, Klebsiella oxytoca - MRSA negative - s/p Debridement on 02/[address] Gonzalez - Adjusted antibiotics to cover for additional 2 organisms - ID / Wound care / General surgery on consultation; appreciate their input - Will have wound care reevaluation tomorrow morning - c/w Pain control with Percocet and dressing changes as scheduled Normocytic anemia - Hemoglobin has remained stable Unspecified psychiatric condition - c/w Risperidone from outpatient setting DVT prophylaxis - c/w Heparin Disposition: - Will continue with IV antibiotics - Advanced wound care and reevaluation tomorrow morning; possible need for additional debridement VS,Fishbone, I+O VS, Fishbone, I+O Laboratory Tests 02/12/20 06:58 Vital Signs Date Time Temp Pulse Resp B/P (MAP) Pulse Ox O2 Delivery O2 Flow Rate FiO2 02/12/20 06:00 98.2 70 18 114/67 (83) 98 Room Air 02/09/20 15:00 2 I&O- Last 24 Hours up to 6 AM 02/12/20 06:00 Intake Total 1060 ml Output Total 1750 ml Balance -690 ml NAHUN SUNSHINE MD Feb 12, 2020 09:18
[2020-02-12 14:00] VITALS: BP 111/71
[2020-02-12] MEDS: PERCOCET 5MG/325MG TAB PO PRN (14:46)
[2020-02-12] MEDS: risperiDONE 0.5 MG TAB PO SCH (20:52)
[2020-02-12] MEDS: CEFEPIME HCL 2 GM in D5W MINI-BAG PLUS 50 ML IV SCH (20:52)
[2020-02-12 22:00] VITALS: BP 118/83
[2020-02-13 06:00] VITALS: BP 111/63
[2020-02-13 07:19] LABS: BASO % 0.4 % (0.0-1.0); EOS # 0.1 10^3/uL (0.0-0.5); EOS % 1.3 % (0.0-3.0); HEMATOCRIT 36.1 % (42.0-52.0); HEMOGLOBIN 11.3 g/dl (13.5-17.5); LYMPH # 1.1 10^3/uL (1.5-5.0); LYMPH % 11.8 % (24.0-44.0); MEAN CORPUSCULAR HGB CONC 31.3 g/dl (32.0-36.5); MEAN CORPUSCULAR VOLUME 92.8 fl (80.0-96.0); MONO # 0.5 10^3/uL (0.0-0.8); MONO % 5.7 % (0.0-5.0); NEUTROPHILS # 7.6 10^3/uL (1.5-8.5); PLATELET COUNT, AUTOMATED 502 10^3/uL (150-450); RED BLOOD COUNT 3.89 10^6/uL (4.30-6.10); WHITE BLOOD COUNT 9.4 10^3/uL (4.0-10.0)
[2020-02-13] MEDS ORDERED: PERCOCET 5MG/325MG TAB PO PRN (07:30)
[2020-02-13 07:38] LABS: BLOOD UREA NITROGEN 9 MG/DL (7-18); C REACTIVE PROTEIN QUANTITATIV 3.78 MG/DL (0.00-0.30); CALCIUM LEVEL 8.9 MG/DL (8.5-10.1); CARBON DIOXIDE LEVEL 30 MEQ/L (21-32); CHLORIDE LEVEL 106 MEQ/L (98-107); CREATININE FOR GFR 0.73 MG/DL (0.70-1.30); GLOMERULAR FILTRATION RATE > 60.0 (>56); GLUCOSE, FASTING 91 MG/DL (70-100); MAGNESIUM LEVEL 2.1 MG/DL (1.8-2.4); POTASSIUM SERUM 4.6 MEQ/L (3.5-5.1); SODIUM LEVEL 139 MEQ/L (136-145)
[2020-02-13] MEDS: PERCOCET 5MG/325MG TAB PO PRN (09:44)
[2020-02-13] MEDS: CEFEPIME HCL 2 GM in D5W MINI-BAG PLUS 50 ML IV SCH ×2 (09:44→21:39)
[2020-02-13] MEDS: HEPARIN SOD (PORCINE) 5000UNITS/ML 1ML VIAL/SYRINGE SC SCH ×2 (09:45→21:39)
[2020-02-13] MEDS: DIMETHICONE 2% OINTMENT(VANICREAM) 70GM TUBE TOP SCH (09:45)
--- NOTE | 2020-02-13 09:51 | IPNPDOC ---
Text Note Date of Service The patient was seen on 02/13/20. NOTE Postoperative day 4 following debridement of infected necrotic wound over the right anterior lower leg and dorsum of the right foot CRP down to 3.7 from a high of 27 anterior prepatellar wound with some necrotic tissue on the wound bed, no purulent drainage dorsum of right foot wound actually looks a lot better with pink healthy granulation tissue on the wound bed, no further skin breakdown Plan" bedside debridement of necrotic tissue on the prepatellar wound discussed with him possible placement of wound vac to the leg wound but patient refusing it at this time He will have another tele-visit with advanced wound care I was told and he can discuss that further with Dr. Barbosa. Wound dressing per advance wound care team. VS,Fishbone, I+O VS, Fishbone, I+O Laboratory Tests 02/13/20 07:03 Vital Signs Date Time Temp Pulse Resp B/P (MAP) Pulse Ox O2 Delivery O2 Flow Rate FiO2 02/13/20 06:00 97.8 59 18 111/63 (79) 98 Room Air 02/09/20 15:00 2 I&O- Last 24 Hours up to 6 AM 02/13/20 06:00 Intake Total 1480 ml Output Total 1425 ml Balance 55 ml JAKE AVINA MD Feb 13, 2020 08:37
[2020-02-13] MEDS ORDERED: LIDOCAINE W/EPINEPHRINE 1% 20ML VIAL SC ONE (10:00)
--- NOTE | 2020-02-13 10:28 | IPNPDOC ---
Text Note Date of Service The patient was seen on 02/13/20. NOTE Subjective: Patient is a 54-year-old male with a PMHx of Chronic Venous insufficiency, Unspecified psychiatric disorder, Hx of L pleural effusion (s/p Drainage), who was presented to the hospital on 02/06/2020 with right leg worsening ulcers with surrounding warmth, redness and tenderness. Patient was found to have cellulitis on top of a chronic ulcer. He was admitted to the hospital service for further evaluation and treatment. Problem hospital course patient has had advanced wound care consultation infectious disease consultation and general surgery consultation. Patient was seen and examined at the bedside. Patient reports that this evening has been uneventful. He notes that when he does take Percocet before dressing changes, it only helps slightly. Patient denies any chest pain, shortness of breath, palpitations, abdominal pain, diarrhea, or urinary discomfort. Objective: Vitals (See below) General: Sitting up in bed, appears comfortable, not in any acute distress, awake, alert and oriented 3 HEENT: NC, AT CVS: +S1S2 Lungs: Again, air entry is fair bilaterally without evidence of rhonchi, crackles or wheezing Abdomen: Abdomen is soft without any distention or tenderness Extremities: Full resolution of erythema, ulceration of right samuels and right foot will be re-evaluated today with advanced wound care / dressing intact Assessment and plan: Acute on Chronic Ulcer of RLE / Cellulitis - 2/2 Streptococcus, Pseudomonas and Klebsiella - Patient initially presented to the ER on 02/05 at the direction of wound care - Hemodynamically stable and afebrile - s/p Erythema; dressing intact will have wound care reevaluate today - s/p Leukocytosis, CRP continues to trend downward - Blood cultures 02/05: No growth at 5 days - Wound cultures 02/08: Streptococcus Pyogenes, Pseudomonas aeruginosa, Klebsiella oxytoca - MRSA negative - s/p Debridement on 02/[address] Gonzalez - c/w Cefdinir (Day #2) - ID / Wound care / General surgery on consultation; appreciate their input - Advanced Wound care reevaluation today - c/w Pain control with Percocet and dressing changes as scheduled; we adjusted dose for better pain control Normocytic anemia - Hemoglobin has remained stable Unspecified psychiatric condition - c/w Risperidone from outpatient setting DVT prophylaxis - c/w Heparin Disposition: - Will continue with IV antibiotics for coverage of pseudomonas - Advanced wound care reevaluation today VS,Florentinbone, I+O VS, Fishbone, I+O Laboratory Tests 02/13/20 07:03 Vital Signs Date Time Temp Pulse Resp B/P (MAP) Pulse Ox O2 Delivery O2 Flow Rate FiO2 02/13/20 09:44 16 Room Air 02/13/20 06:00 97.8 59 111/63 (79) 98 02/09/20 15:00 2 I&O- Last 24 Hours up to 6 AM 02/13/20 06:00 Intake Total 1480 ml Output Total 1425 ml Balance 55 ml NAHUN SUNSHINE MD Feb 13, 2020 10:28
--- NOTE | 2020-02-13 10:40 | ROOPDOC ---
[facility] Report Of Operation Report of Operation DATE OF PROCEDURE: 02/13/20 PREPROCEDURE DIAGNOSES: necrotic wound, right anterior leg. POSTPROCEDURE DIAGNOSES: same. PROCEDURE: excisional debridement of necrotic subcutaneous tissue right anterior leg. SURGEON: Guido Gonzalez MD [facility]: ANESTHESIA: local anesthesia (1% lidcoaine with epinephrine - 20 mLs. ESTIMATED BLOOD LOSS: minimal COMPLICATIONS: none. DESCRIPTION OF PROCEDURE: Procedure was done at the bedside. His right leg was positioned on his bed, prepped and draped in usual sterile fashion using Betadine. We paused for a pedersen rgical timeout using both pre-incision safety checklist to verify correct patient, procedure site and additional clinical information prior to beginning the procedure. There is a good amount of progression of the subcutaneous tissue on the upper half of the right anterior prepatellar wound. The skin itself seems to be stable and did not progress to necrosis though there is a good amount of undermining laterally about 2 cm. The wound bed was infiltrated with 1% lidocaine containing epinephrine. Using scissors, the necrotic tissue was sharply debrided to healthy bleeding points. This is mostly made up of necrotic and liquefied adipose tissue. Still the level of the wound is at the investing fascia of the anterior muscles and did not go deeper. There is a good amount of liquefied fat over the superolateral portion of the wound edge and so there is about a 1 cm undermining around this area after debriding the necrotic tissue. A saline moistened gauze was left in the wound bed for packing and the compression tube dressing was placed back on the wound. This would be examined by the wound care clinic later on for suggestion of further wound dressing. Patient tolerated the procedure well. Dimensions of the wound did not change. . GUIDO GONZALEZ MD Feb 13, 2020 10:40
[2020-02-13] MEDS: ACETAMINOPHEN TAB 650MG DOSE (2X325MG) PO PRN (13:19)
[2020-02-13 14:00] VITALS: BP 120/82
[2020-02-13] MEDS: risperiDONE 0.5 MG TAB PO SCH (21:39)
[2020-02-13 22:00] VITALS: BP 142/91
[2020-02-14 06:00] VITALS: BP 110/76
[2020-02-14] MEDS: HEPARIN SOD (PORCINE) 5000UNITS/ML 1ML VIAL/SYRINGE SC SCH ×2 (08:19→21:13)
[2020-02-14] MEDS: CEFEPIME HCL 2 GM in D5W MINI-BAG PLUS 50 ML IV SCH ×2 (08:19→21:13)
[2020-02-14] MEDS: DIMETHICONE 2% OINTMENT(VANICREAM) 70GM TUBE TOP SCH (08:20)
[2020-02-14] MEDS ORDERED: LEVA750T7 PO (08:58)
[2020-02-14] MEDS ORDERED: BACITAB PO (10:48)
[2020-02-14] MEDS ORDERED: [UNRECOGNIZED DRUG - CODE] TOP (10:48)
[2020-02-14] MEDS ORDERED: IBUP-1022 PO ×2 (10:49→10:52)
[2020-02-14] MEDS ORDERED: ACET-683 PO (10:49)
--- NOTE | 2020-02-14 10:59 | IPNPDOC ---
Date Seen The patient was seen on 02/14/20. Progress Note Hospitalist Attending Physician 02/14/20 Discharge Summary has been dictated. Dictation If written documentation is needed urgently, pls call [facility] [phone] for STAT weaver wire loom, and Medical Records [phone] to STAT scan into EMR. VS, I&O, 24H, Fishbone Vital Signs/I&O Vital Signs Date Time Temp Pulse Resp B/P (MAP) Pulse Ox O2 Delivery O2 Flow Rate FiO2 02/14/20 06:00 98.4 81 16 110/76 (87) 98 Room Air 02/09/20 15:00 2 I&O- Last 24 Hours up to 6 AM 02/14/20 06:00 Intake Total 1040 ml Output Total 775 ml Balance 265 ml Laboratory Data 24H LABS Laboratory Tests 2 02/14/20 05:33: C-Reactive Protein, Quantitative 3.45H Microbiology Microbiology 02/09/20 Gram Stain - Final, Complete 02/09/20 Wound Culture - Final, Complete Streptococcus Pyogenes Grp A 02/09/20 Anaerobic Culture - Final, Complete 02/09/20 Gram Stain - Final, Complete 02/09/20 Wound Culture - Final, Complete Streptococcus Pyogenes Grp A Pseudomonas Aeruginosa Klebsiella Oxytoca 02/09/20 Anaerobic Culture - Final, Complete 02/06/20 Blood Culture - Final, Complete NO GROWTH AFTER 5 DAYS 02/06/20 Gram Stain - Final, Complete 02/06/20 Wound Culture - Final, Complete Streptococcus Pyogenes Grp A 02/06/20 Blood Culture - Final, Complete NO GROWTH AFTER 5 DAYS JENAE CONTRERAS MD Feb 14, 2020 10:58
--- NOTE | 2020-02-14 12:10 | IPNPDOC ---
Text Note Date of Service The patient was seen on 02/14/20. NOTE Postoperative day 5 following debridement of infected necrotic wound over the right anterior lower leg and dorsum of the right foot/ POD1 bedside debridement of leftover necrotic portion of right anterior leg wound, wound vac placemen CRP down to 3.7 from a high of 27 anterior prepatellar wound with some necrotic tissue on the wound bed, no purulent drainage dorsum of right foot wound actually looks a lot better with pink healthy granulation tissue on the wound bed, no further skin breakdown Plan: Patient amenable to wound vac therapy. will send request for home wound vac. OK to d/c once home wound vac available follow up with wound care clinic once discharged. VS,Fishbone, I+O VS, Fishbone, I+O Vital Signs Date Time Temp Pulse Resp B/P (MAP) Pulse Ox O2 Delivery O2 Flow Rate FiO2 02/14/20 06:00 98.4 81 16 110/76 (87) 98 Room Air 02/09/20 15:00 2 I&O- Last 24 Hours up to 6 AM 02/14/20 06:00 Intake Total 1040 ml Output Total 775 ml Balance 265 ml JAKE AVINA MD Feb 14, 2020 12:10
[2020-02-14 14:00] VITALS: BP 133/76
[2020-02-14] MEDS: risperiDONE 0.5 MG TAB PO SCH (21:13)
[2020-02-14 22:00] VITALS: BP 109/74
[2020-02-15 06:00] VITALS: BP 105/68
[2020-02-15] MEDS: HEPARIN SOD (PORCINE) 5000UNITS/ML 1ML VIAL/SYRINGE SC SCH ×2 (07:56→21:55)
[2020-02-15] MEDS: DIMETHICONE 2% OINTMENT(VANICREAM) 70GM TUBE TOP SCH (07:57)
[2020-02-15] MEDS: CEFEPIME HCL 2 GM in D5W MINI-BAG PLUS 50 ML IV SCH ×2 (07:57→21:56)
--- NOTE | 2020-02-15 13:03 | REP ---
CLINICAL: Right knee pain. Evaluate for osteomyelitis. TECHNIQUE: AP, lateral, and bilateral oblique views of the right knee. FINDINGS: Osteopenia is suggested along with generalized age-related changes. No acute fracture or dislocation. No overt arthritic findings. No obvious effusion. There appears to be anterior soft tissue swelling from the level of the patella to the proximal tibial shaft. Lateral view demonstrates an open wound along the anterior margin of the soft tissues overlying the proximal tibial metadiaphysis and correlation is recommended. No periosteal reaction or findings to suggest osteomyelitis noted. IMPRESSION: * Osteopenia and age-related changes. * Anterior soft tissue swelling and suspected open wound overlying the anterior tibial metadiaphysis. * No radiographic evidence for osteomyelitis MTDD
[2020-02-15 14:00] VITALS: BP 119/78
--- NOTE | 2020-02-15 16:00 | CR ---
DATE OF CONSULTATION: CONSULTATION ORDERED BY: Dr. Yogesh Temple REASON FOR CONSULTATION: Right lower extremity wound care. Patient is a 54-year-old male with autism. Had been treated for right lower extremity venous stasis ulcers with compression wraps, however, missed one appointment and when seen had deep tissue injury involving the dorsa aspect of his right foot and an early necrotizing fasciitis involving the right proximal pretibial are and prepatellar region. Both wounds were extensively debrided, and due to the nature of the involvement patient was hospitalized. The right pretibial wound was debrided down to the fascia, which was partially incised, removing necrotic tissue. There was edematous early necrosis of the subcutaneous tissue and areas of ischemic necrosis of the skin involving the periwound. The dorsal aspect showed a deep tissue injury, which was fully debrided. Both wounds were covered with Hydrofera Blue, and the patient was sent to the emergency room for admission. He was seen via telemedicine today. Consent was obtained. In general, the patient's condition has stabilized. He is afebrile, and his early white count of 17,000 has now decreased to 15,000. He is on cefazolin and vancomycin. The right foot shows a wound measuring 8.0 cm x 4.0 cm with a small central wound depth of 0.5 cm, which does not entail 98% of the wound, which is showing a depth of 0.1%. He has full range of motion of the digits, and there are no deep structures seen. The drainage is minimal to moderate, serosanguineous without odor. Of more concern is the right pretibial wound, which measures 4.5 cm x 6.0 cm with a wound depth of 0.5 cm and areas of ischemic necrosis involving the periwound from the 8 o'clock to the 12 o'clock position, measuring 4.0 cm x 7.0 cm. TREATMENT: At this time, patient should remain at bedrest with Trendelenburg position. Dressing changes are to be done daily. Hydrofera Blue transfer will be used for both wounds covered with either OptiLock or foam dressings. Vashe would cleanser should be used prior to dressing changes once all of the dressings have been removed. Dressings can be secured with Kerlix or Benito and a Medi-research professor of biostatistics or thromboembolic deterrent (YAN) stockings should be used for compression. Bilateral heel float boots are mandatory to prevent deep tissue injuries from the heels, and the patient's diet should be supplemented with Ensure with meals and Omkar twice a day. We are available or any clarification on dressing changes and/or reconsultation as needed. As surgical consult has to be obtained to debride the periwound. This was discussed with Dr. Temple, who indicates that he is now referring the patient by rotation over to Dr. Diaz but would mention the necessary surgical consult for further debridement to remove any additional devitalized tissue. This is mandatory in terms of his care and to ensure an improved outcome. DIONICIO
--- NOTE | 2020-02-15 16:07 | CR ---
DATE OF CONSULTATION: REFERRING PHYSICIAN: Dr. Diaz. REASON FOR CONSULTATION: Evaluation of right lower extremity cellulitis. HISTORY OF PRESENT ILLNESS: Mr. Mendoza is a 54-year-old gentleman with a history of renal insufficiency and lymphedema of lower extremities that started about a year and a half ago according to his mother. The patient has been followed at the [facility] with Taylor Adams since August 2019. He was having debridement of lower extremity wound on the right side especially, the left leg had healed pretty well. He was not feeling well about a week ago with nausea and he missed his appointment to see the Wound Clinic. His mother made him come on Thursday morning and they noticed that he had an infection with cellulitis and infected hematoma. He had a temperature of 100.7. He was started on IV antibiotic, wound culture was obtained on 02/05 and was positive for Group A Strep, blood cultures were negative. He went to the Operating Room with Dr. Gonzalez for debridement. Vascular ultrasound was negative for DVT. PAST MEDICAL HISTORY: Collapsed lung in the 90s, history of paranoia, borderline schizophrenia. Patient does not have a clear diagnosis at this point. His mother states that he has not held a job in 20 years and he stays in his room. History of left pleural effusion requiring thoracentesis. PAST SURGICAL HISTORY: Thoracentesis, debridement of lower extremity ulcers. SOCIAL HISTORY: He is single, never . He lives with his mom, was originally from [place] on [facility]. He has a history of chewing tobacco. He drinks whiskey, about three shots a month. Denies illicit drug use. FAMILY HISTORY: Father of heart disease and congestive heart failure. ALLERGIES: No known drug allergies. MEDICATIONS: 1. Risperidone 0.5 mg p.o. h.s. 2. Cefazolin 1 gram IV q. 8 hours. 3. Vanicream apply to scaly legs daily. 4. Tylenol as needed. LABORATORY DATA: White count on admission was 17, today it was 13.2, hemoglobin 11.7, hematocrit 36.3, platelets 264,000, 82% neutrophils, 80% lymphocytes, 80% monocytes, ESR 85, sodium 141, potassium 4, chloride 108, bicarb 26, BUN 9, creatinine 0.57, glucose 96, calcium 8.1. Lactic acid was 2.1, down to 1.4, CRP 14.8, down from 27.2. Blood cultures: Two sets were negative and wound culture was positive for Group A Strep. Pretibial x-rays were done, no reports in the computer. Left lower ultrasound showed no DVTs. PHYSICAL EXAMINATION: GENERAL: A middle-aged man who looks older than stated age, in no acute distress. VITAL SIGNS: Temperature is 98.5, pulse is 95, respirations are 18, blood pressure is 143/80, 100% on room air. T-max today was 100.2. HEART: Normal S1 and S2. No murmurs, rubs or gallops. LUNGS: Clear. No wheezes, rales or rhonchi. ABDOMEN: Soft, nontender and nondistended. BACK: No CVA or lumbosacral tenderness. EXTREMITIES: Right leg has +2 ankle edema, the left leg has +1 edema. He has venous stasis changes on the shins. He has a few varicose veins. The left leg has no evidence of infection, but dry scaly lesions. Right leg I could not examine as he just came back from the OR. He has a Coban dressing. He has an open ulceration right behind his knee, mild erythema of the knee but his knee has a 90 degree range of motion. IMPRESSION: This is a 54-year-old gentleman with a history of venous ulcers status post debridement who has developed an infected venous ulcer with Group A Strep with an underlying hematoma. He denies any trauma. The patient is clinically improving. PLAN: Continue with IV Cefazolin 1 gram every 8 hours. Patient once afebrile and white count normalizes could be switched to Amoxicillin 875 mg p.o. b.i.d. Will obtain records from [place] when he was admitted in June 2019 with edema and cellulitis and infected ulcers. His mother states that he had an echocardiogram during that visit which needs to be reviewed. I am not sure why the underlying diagnosis of lymphedema or venous stasis ulcers in this patient who is not abuse with no significant underlying medical history. He is clinically improving and will anticipate he could be switched to an oral antibiotic in the next 24 to 48 hours. DIONICIO
--- NOTE | 2020-02-15 16:08 | IPN ---
WOUND CARE FOLLOW-UP CONSULTATION HISTORY OF PRESENT ILLNESS: This is performed via Telemedicine with patient consent. Patient recently admitted to [facility] for advancing necrotizing fasciitis involving the right infrapatellar area and the dorsal aspect of his right foot. Initial debridement was performed in the [facility] and the patient was transferred to the Emergency Room for admission. He has been seen by Dr. Gonzalez in consultation at our request who further debrided the wound removing any necrotic vickie-wound involving the infrapatellar region. This wound now shows areas of fibrin slough on the wound base, however the necrotic tissue has been excised. Gravitational dependent is significantly improved. Patient is afebrile and his white count is 10.2. He is being covered with IV antibiotic. At this point, we will continue with cleansing the wound with Vashe Wound Cleanser as written before and will use Hydrofera Blue Transfer and an Optilock dressing to be changed on a daily basis. In terms of the infrapatellar wound, Wound-Vac therapy can be initiated next week when the remaining fibrin slough has been further debrided with improvement. I have discussed via telephone message with Dr. Gonzalez regarding this. At the time of patients discharge in the future, would be glad to follow- up with his care. In the meantime, please feel free to re-consult us regarding any changes in the patients status and/or changes in dressings. DIONICIO
[2020-02-15] MEDS: risperiDONE 0.5 MG TAB PO SCH (21:55)
[2020-02-15 22:00] VITALS: BP 120/77
[2020-02-16 06:00] VITALS: BP 104/68
[2020-02-16] MEDS: CEFEPIME HCL 2 GM in D5W MINI-BAG PLUS 50 ML IV SCH ×2 (08:39→20:22)
[2020-02-16] MEDS: HEPARIN SOD (PORCINE) 5000UNITS/ML 1ML VIAL/SYRINGE SC SCH ×2 (08:39→20:22)
[2020-02-16] MEDS: DIMETHICONE 2% OINTMENT(VANICREAM) 70GM TUBE TOP SCH (08:39)
--- NOTE | 2020-02-16 10:07 | IPN ---
DATE: 02/10/2020 Mr. Mendoza seems to be doing well. He denies any fever or chills. No nausea, vomiting, or diarrhea. He has minimal pain in his leg, where he has two large necrotic ulcers. Temperature was 100.7 on February 07, 100.2 on February 08. Today he is afebrile. No nausea, vomiting, or diarrhea. No abdominal pain. MEDICATIONS: - intravenous (IV) cefazolin 1 gram every 8 hours - Tylenol as needed, which he has not taken - Vanicream apply to legs daily - risperidone 0.5 mg by mouth every night ALLERGIES: No known drug allergies. LABORATORY DATA: White count 10.4, down from 17.7, hemoglobin 11, hematocrit 34.7, platelets 450, 79% neutrophils, 11% lymphocytes, 6% monocytes, ESR 85. Sodium 141, potassium 4, chloride 107, bicarbonate 29, BUN 6, creatinine 0.58, glucose 97, calcium 8.4, CRP 13.5, down from 27.2. Wound culture: Group A streptococcus on cultures done on February 05 and February 08. PHYSICAL EXAMINATION: Temperature 98.4, pulse 82, respirations 18, blood pressure 117/77, oxygen 97% on room air. HEART: Normal S1, S2. No murmurs, rubs or gallops. LUNGS: Clear. No wheezes, rales, or rhonchi. ABDOMEN: Soft, nontender. No hepatosplenomegaly. BACK: No costovertebral angle (CVA) or lumbosacral tenderness. EXTREMITIES: Left leg with trace edema and scaly changes on the samuels aspect with minimal erythema and hyperpigmented venous stasis changes. No open ulcerations. Right leg has erythema from the knee down to the foot. There is a very large necrotic ulcer underneath the knee, measuring about 8 x 7 cm with some dark discoloration around the wound. There is still purulent discharge. Cellulitis extending from the knee to the mid thigh has markedly decreased. Knee range of motion is normal. Right foot has another large ulcer, measuring about 7 x 6 cm. The tendons are exposed. The wound depth is at least a centimeter, where there is still purulent material. Ankle normal range of motion. IMPRESSION: 1. Necrotizing cellulitis of the right leg, involving the foot and the leg with two very large ulcerations with culture positive for group A streptococcus. The wound is very deep, and there is expose tendon. 2. History of lymphedema with venous stasis ulcers, although reason unclear to me still. PLAN: Discontinue cefazolin. Switch to IV ampicillin at 2 grams every 6 hours to de-escalate to more narrow-spectrum antibiotic. Patient needs to remain on IV antibiotic. I suspect he will need more debridement and possibly a wound graft at a later time. Dr. Barbosa on consult as well as Dr. Gonzalez. [facility] HOSPITALCitlali
[2020-02-16 14:00] VITALS: BP 125/81
[2020-02-16] MEDS: PERCOCET 5MG/325MG TAB PO PRN (14:50)
--- NOTE | 2020-02-16 16:03 | IPN ---
DATE: 02/14/2020 Lionel is doing much better. He denies any fever or chills. He complains of pain in his foot with dressing changes. No nausea, vomiting, or diarrhea. His appetite is good. He had a temperature 48 hours ago but had no recurrence. No nausea, vomiting, or diarrhea. No cough or shortness of breath. Temperature is 98.7, pulse 84, respirations 16, blood pressure 133/76, oxygen saturation 98% on room air. HEART: Normal S1, S2. No murmurs. LUNGS: Clear. No wheezes, rales, or rhonchi. ABDOMEN: Soft, nontender. No hepatosplenomegaly. EXTREMITIES: Left leg with venous stasis changes and erythema with no open ulceration long the lower samuels. He has two healed venous ulcers on the calf, right leg, and open ulcer on the foot with tendons that are exposed. The ulcer measures about 7 x 5 cm. There is granulation tissue. Minimal purulent discharge around the 2nd and 3rd toe. Cellulitis involving the leg up to the knee. The knee also has a wound vacuum-assisted closure (VAC) in place. Along the calf area there are two venous ulcers that are not open at this time with no discharge. LABORATORY DATA: White count is 9.4, hemoglobin 11.3, hematocrit 36.1, platelets 502, 80% neutrophils, 4% lymphocytes, 5% monocytes. Sodium 139, potassium 4.6, chloride 106, bicarbonate 30, BUN 9, creatinine 0.73, glucose 91, calcium 8.9, magnesium 2.1. CRP 3.45, down from 27.2. Cultures from February 05 had group A streptococcus. February 08, the right foot had Streptococcus pyogenes, group A, Pseudomonas aeruginosa, and klebsiella. The knee culture had group A streptococcus. Patient is on intravenous (IV) cefepime 2 grams every 12 hours. IMPRESSION: Necrotizing group A streptococcus infection of the right leg with two large ulcerations and cellulitis, on IV cefepime, doing much better. Patient probably would benefit from a wound VAC on the lower wound as well. 2. Pseudomonas and klebsiella in the right foot ulcer. Not sure if this is real or just colonization, but either covered by cefepime. There were only few, and I suspect they were colonization than real cultures. 3. Venous stasis with venous hypertension and lower extremity edema, doing better. PLAN: Continue IV cefepime 2 grams every [address] Will discuss with Dr[address] Gonzalez whether the patient would benefit from a wound VAC on the lower wound as well. He is currently day #7 of IV antibiotics. DIONICIO
--- NOTE | 2020-02-16 16:09 | DSES ---
DATE OF ADMISSION: 02/06/2020 DATE OF DISCHARGE: The patient was kept overnight due to wound VAC issues. The patient's wound VAC had not been delivered and home care still needed to be arranged. No other issues occurred overnight. Patient remains medically stable for hospital discharge at any time. Time spent on discharge: 30 minutes. Please refer to prior discharge summary. MTDD
[2020-02-16] MEDS: risperiDONE 0.5 MG TAB PO SCH (20:21)
[2020-02-16 22:00] VITALS: BP 115/77
[2020-02-17 06:00] VITALS: BP 101/70
[2020-02-17] MEDS: HEPARIN SOD (PORCINE) 5000UNITS/ML 1ML VIAL/SYRINGE SC SCH (08:38)
[2020-02-17] MEDS: CEFEPIME HCL 2 GM in D5W MINI-BAG PLUS 50 ML IV SCH (08:39)
[2020-02-17] MEDS: DIMETHICONE 2% OINTMENT(VANICREAM) 70GM TUBE TOP SCH (09:28)
--- NOTE | 2020-02-17 09:40 | IPN ---
DATE: 02/16/2020 SUBJECTIVE: Lionel is doing very well. He is going to be discharged home today. He has a wound VAC below the knee and a dressing change is being done on the foot. He will have public health nursing to do his dressing change with the wound VAC tomorrow at home. No fever or chills. He has mild pain with flexion of the knee. PHYSICAL EXAMINATION: EXTREMITIES: Right foot ulcer measures 5.5 by 5 cm with granulation tissue and no exposed tendon and no purulence of the right foot. There are venous stasis changes of both legs with erythema and healed ulcers. Right knee has a wound VAC in place and that wound was not examined. LABORATORY STUDIES: White count 9.4, hemoglobin 11.3, hematocrit 36.1, platelets 502. ESR 1.69, down from 27.2. Wound cultures had group A strep on three of the cultures done and one culture had pseudomonas and Klebsiella of the bottom wound. HOSPITAL COURSE: The patient has been on IV antibiotic for a total of 10 days, currently on Cefepime. He will be discharged home on p.o. Levofloxacin 750 mg daily for 7 days. The patient was encouraged to eat yogurt or take probiotics at least twice a day. FOLLOW UP: The patient is to follow up at the Wound Clinic with Dr. Barbosa in the next 7-10 days. DIONICIO
--- NOTE | 2020-02-17 12:02 | DS.PDOC ---
Discharge Summary General Date of Admission Feb 06, 2020 at 18:48 Date of Discharge 02/17/20 ADDENDUM TO DISCHARGE SUMMARY BY DR SUNSHINE Reason for PROLONGED hospitalization: Insurance approval for Wound VAC Discharge Summary DISCHARGE DIAGNOSES: Necrotizing cellulitis of the right anterior leg and foot Collapsed lung in the 90s, history of paranoia borderline schizophrenia. History of left pleural effusion requiring thoracentesis. CONSULTANTS: DR. REID GONZALEZ DISCHARGE MEDICATIONS: SEE BELOW PROCEDURES: DATE OF PROCEDURE: 02/09/20 PREPROCEDURE DIAGNOSES: infected ulcerated wound on right anterior lower leg and right foot, venous hypertensiion. POSTPROCEDURE DIAGNOSES: infected, ulcerated wound on right anterior lower leg to surface of muscles, infected ulcerated wound on right foot, to surface of tendons, venous hypertension. PROCEDURE: Excisional debridement of necrotic tissues, drainage of subcutaneous abscess on right anteriior lower leg, excisional debridement of necrotic tissues on dorsum of foot. SURGEON: Guido Gonzalez MD DATE OF PROCEDURE: 02/13/20 PREPROCEDURE DIAGNOSES: necrotic wound, right anterior leg. POSTPROCEDURE DIAGNOSES: same. PROCEDURE: excisional debridement of necrotic subcutaneous tissue right anterior leg. SURGEON: Guido Gonzalez MD HISTORY OF PRESENTING ILLNESS: 54-year-old male with PMHx of chronic venous insufficiency and an unspecified psychiatric disorder on risperidone, referred by Dr. Novoa to the ED for a nonhealing necrotic right lower leg and foot ulcers for IV antibiotics and surgical debridement.He had leukocytosis (WBC 17.7) with neutrophilia, tachycardia, and had a lactic acid of 2.1. Initial blood cultures 2 were obtained along with a wound culture. One dose of IV Ancef was administered. ID Dr. Schreiber, General Surgeon Dr. Gonzalez, and Woundcare specialist Dr. Novoa were consulted. HOSPITAL COURSE: He had a temperature of 100.7. He was started on IV cefazolin from 02/05-02/09, vancomycin from 02/05-02/06, and changed to iv cefepime from 02/09 to 02/16. wound culture was obtained on 02/05 and was positive for Group A Strep, blood cultures were negative. He went to the Operating Room with Dr. Gonzalez on 02/08 and 02/12 for debridement. Vascular ultrasound was negative for DVT. Wound vac was placed on 02/12, but insurance did not approved until 02/16/20. Pt had Tmax 100.7 on 02/07,but remained afebrile since, and wbc peaked at 17, but normalized to 9.4 on 02/13/20. His pain was controlled on prn pain meds, and cleared by physical therapy for hospital discharge. pt is to complete 7 more days of po levaquin and bacid at home. outpt paola novoa for wound vac management. DISCHARGE PHYSICAL EXAMINATION: VITALS: SEE BELOW GEN: AAO X3 HEENT: PERRL EOMI NO CERVICAL LAD OR JVD NO THYROMEGALY HEART: Normal S1, S2. No murmurs, rubs or gallops. LUNGS: Clear. No wheezes, rales, or rhonchi. ABDOMEN: Soft, nontender. No hepatosplenomegaly. BACK: No costovertebral angle (CVA) or lumbosacral tenderness. EXTREMITIES: Left leg with trace edema and scaly changes on the samuels aspect withminimal erythema and hyperpigmented venous stasis changes. No open ulcerations. Right leg has erythema from the knee down to the foot. There is a very large necrotic ulcer underneath the knee, measuring about 8 x 7 cm with some dark discoloration around the wound. There is still purulent discharge. Cellulitis extending from the knee to the mid thigh has markedly decreased. Knee range of motion is normal. Right foot has another large ulcer, measuring about 7 x 6 cm. The tendons are exposed. The wound depth is at least a centimeter, where there is still purulent material. Ankle normal range of motion. DISCHARGE LABORATORY DATA: SEE BELOW IMAGING STUDIES: PROCEDURE INFORMATION: Exam: US Duplex Right Lower Extremity Veins, Limited Exam date and time: 02/07/20 (10:46am) Age: 54 years old Clinical indication: Right leg swelling Imaging protocol: Real-time Duplex ultrasound of the Right Lower Extremity with 2-D saravia scale, color Doppler flow and spectral waveform analysis with image documentation. Limited examination was focused on the right lower extremity veins. COMPARISON: No relevant prior studies available FINDINGS: Right deep veins: Unremarkable. The common femoral, femoral, proximal profunda femoral and popliteal veins are patent without thrombus. Normal Doppler waveforms. Normal compressibility and/or augmentation response. Right superficial veins: Unremarkable. Saphenofemoral junction is patent without thrombus. Soft tissues: Unremarkable. IMPRESSION: No evidence of deep vein thrombosis. Electronically signed by: Marychuy Oquendo On 02/07/2020 10:56:37 AM CLINICAL: Right knee pain. Evaluate for osteomyelitis. TECHNIQUE: AP, lateral, and bilateral oblique views of the right knee. FINDINGS: Osteopenia is suggested along with generalized age-related changes. No acute fracture or dislocation. No overt arthritic findings. No obvious effusion. Thereappears to be anterior soft tissue swelling from the level of the patella to theproximal tibial shaft. Lateral view demonstrates an open wound along the anterior margin of the soft tissues overlying the proximal tibial metadiaphysis and correlation is recommended. No periosteal reaction or findings to suggest osteomyelitis noted. IMPRESSION: * Osteopenia and age-related changes. * Anterior soft tissue swelling and suspected open wound overlying the anterior tibial metadiaphysis. * No radiographic evidence for osteomyelitis DD: Soham Chacon MD 02/08/20 1200 DT: GARRY 02/15/20 1302 MICROBIOLOGYS: SEE CHART TIME SPENT ON DISCHARGE: 30 MIN. Vital Signs/I&Os Vital Signs Date Time Temp Pulse Resp B/P (MAP) Pulse Ox O2 Delivery O2 Flow Rate FiO2 02/17/20 06:00 98.1 72 18 101/70 (80) 98 Room Air I&O- Last 24 Hours up to 6 AM 02/17/20 06:00 Intake Total 960 ml Output Total 1050 ml Balance -90 ml Microbiology Microbiology 02/09/20 Gram Stain - Final, Complete 02/09/20 Wound Culture - Final, Complete Streptococcus Pyogenes Grp A 02/09/20 Anaerobic Culture - Final, Complete 02/09/20 Gram Stain - Final, Complete 02/09/20 Wound Culture - Final, Complete Streptococcus Pyogenes Grp A Pseudomonas Aeruginosa Klebsiella Oxytoca 02/09/20 Anaerobic Culture - Final, Complete Discharge Medications Scheduled Dimethicone (Vaniply) 70 Gm Oint...g., 0 DOSE TOP DAILY L.acidoph/L.bulg/B.bif/S.therm (Bacid Caplet) 1 Each Tablet, 1 TAB PO WM Levofloxacin (Levaquin) 750 Mg Tablet, 750 MG PO DAILY Risperidone (Risperidone) 0.5 Mg Tablet, 0.5 MG PO QHS, (Reported) Scheduled PRN Acetaminophen (Acetaminophen) 500 Mg Tablet, 1,000 MG PO Q6H PRN for pain Ibuprofen (Ibuprofen) 600 Mg Tablet, 600 MG PO Q6H PRN for PAIN Allergies Coded Allergies: No Known Allergies (Unverified , 02/06/20) JENAE CONTRERAS MD Feb 17, 2020 11:36
[2020-02-17 13:07] LABS: BASO # 0.1 10^3/uL (0.0-0.2); BASO % 0.7 % (0.0-1.0); EOS # 0.1 10^3/uL (0.0-0.5); EOS % 1.1 % (0.0-3.0); HEMATOCRIT 42.4 % (42.0-52.0); HEMOGLOBIN 13.2 g/dl (13.5-17.5); LYMPH # 1.1 10^3/uL (1.5-5.0); LYMPH % 13.7 % (24.0-44.0); MEAN CORPUSCULAR HEMOGLOBIN 29.1 pg (27.0-33.0); MEAN CORPUSCULAR HGB CONC 31.1 g/dl (32.0-36.5); MEAN CORPUSCULAR VOLUME 93.4 fl (80.0-96.0); MONO # 0.5 10^3/uL (0.0-0.8); MONO % 6.3 % (0.0-5.0); NEUTROPHILS # 6.5 10^3/uL (1.5-8.5); NEUTROPHILS % 77.7 % (36.0-66.0); PLATELET COUNT, AUTOMATED 502 10^3/uL (150-450); RED BLOOD COUNT 4.54 10^6/uL (4.30-6.10); WHITE BLOOD COUNT 8.3 10^3/uL (4.0-10.0)
[2020-02-17 13:31] LABS: BLOOD UREA NITROGEN 16 MG/DL (7-18); CALCIUM LEVEL 9.1 MG/DL (8.5-10.1); CARBON DIOXIDE LEVEL 28 MEQ/L (21-32); CHLORIDE LEVEL 105 MEQ/L (98-107); CREATININE FOR GFR 0.77 MG/DL (0.70-1.30); GLOMERULAR FILTRATION RATE > 60.0 (>56); GLUCOSE, FASTING 86 MG/DL (70-100); POTASSIUM SERUM 4.7 MEQ/L (3.5-5.1); SODIUM LEVEL 136 MEQ/L (136-145)
[2020-02-17 13:44] LABS: ERYTHROCYTE SEDIMENTATION RATE 56 mm/hr (0-20)
[2020-02-17 14:00] VITALS: BP 144/88
--- NOTE | 2020-02-21 11:35 | IPN ---
DATE: 02/17/2020 Lionel was seen today. His wound vacuum-assisted closure (VAC) was removed from right knee wound. He had minimal pain with removal of the VAC but otherwise doing well. He has no fever or chills. No nausea, vomiting, or diarrhea. No abdominal pain. PHYSICAL EXAMINATION: Right below-knee wound measures 10 cm x 8 cm with granulation tissue. No purulence. Serosanguineous drainage. Right foot wound, same thing; has granulation with no purulence. There is no exposed tendon. He has normal range of motion of the ankle and the foot. IMPRESSION: Necrotizing fasciitis of the right leg with large ulcers, doing much better, with wound VAC and Hydrofera Blue dressing on the foot PLAN. Patient has finished 10 days of intravenous (IV) antibiotics, and he was switched to levofloxacin for another 5 days after discharge. Patient can followup at the wound clinic. He does not need infectious disease appointment for followup. He was encouraged to use probiotics. DIONICIO
== END 2020-02-17 15:15 | disposition home health service (06) | DRG 361 ==
LOC: M ED 15:12 → M ED INP 18:48 → M MS5PR 20:15
PROVIDERS: ADMIT Internal Medicine; ATTEND General Practice
PROC: 0HBMXZZ Excision of Right Foot Skin, External Approach (ICD-10-PCS; 2020-02-09)
PROC: 0J9N0ZZ Drainage of Right Lower Leg Subcutaneous Tissue and Fascia, Open Approach (ICD-10-PCS; 2020-02-09)
PROC: 0JBN0ZZ Excision of Right Lower Leg Subcutaneous Tissue and Fascia, Open Approach (ICD-10-PCS; principal; 2020-02-09 13:30)
PROC: 0JBN0ZZ Excision of Right Lower Leg Subcutaneous Tissue and Fascia, Open Approach (ICD-10-PCS; 2020-02-13)
DX: L03.115 Cellulitis of right lower limb (principal); M72.6 Necrotizing fasciitis; L97.915 Non-pressure chronic ulcer of unspecified part of right lower leg with muscle involvement without evidence of necrosis; I87.331 Chronic venous hypertension (idiopathic) with ulcer and inflammation of right lower extremity; F22 Delusional disorders; F21 Schizotypal disorder; D64.9 Anemia, unspecified; B95.0 Streptococcus, group A, as the cause of diseases classified elsewhere; B96.5 Pseudomonas (aeruginosa) (mallei) (pseudomallei) as the cause of diseases classified elsewhere; B96.1 Klebsiella pneumoniae [K. pneumoniae] as the cause of diseases classified elsewhere; R60.0 Localized edema; M79.81 Nontraumatic hematoma of soft tissue; Z79.899 Other long term (current) drug therapy

== ENCOUNTER → 2020-02-06 | Outpatient (REF) | payer MEDICAID, OTHER ==
[~2020-02-06] MED LIST: ACET-683 PO; BACITAB PO; IBUP-1022 PO; LEVA750T7 PO; RISP0.5T3 PO; [UNRECOGNIZED DRUG - CODE] TOP
== END ==
LOC: M LAB REF 15:56
PROVIDERS: ATTEND Surgery
DX: I87.311 Chronic venous hypertension (idiopathic) with ulcer of right lower extremity (principal)

== ENCOUNTER → 2021-10-24 | Outpatient (CLI) | payer OTHER ==
[~2021-10-24] MED LIST changes: +RISP-7 PO; -RISP0.5T3 PO
== END ==
LOC: M RAD 12:00
PROVIDERS: ATTEND Surgery
DX: I87.311 Chronic venous hypertension (idiopathic) with ulcer of right lower extremity (principal); I87.2 Venous insufficiency (chronic) (peripheral)

== ENCOUNTER → 2022-04-25 | Outpatient (CLI) | payer MEDICAID, OTHER ==
[2022-04-25 10:59] LABS: BASO # 0.1 10^3/uL (0.0-0.2); BASO % 0.9 % (0.0-1.0); EOS # 0.2 10^3/uL (0.0-0.5); EOS % 3.5 % (0.0-3.0); HEMATOCRIT 47.5 % (42.0-52.0); HEMOGLOBIN 14.7 g/dl (13.5-17.5); LYMPH # 1.1 10^3/uL (1.5-5.0); LYMPH % 17.2 % (24.0-44.0); MEAN CORPUSCULAR HEMOGLOBIN 29.2 pg (27.0-33.0); MEAN CORPUSCULAR HGB CONC 30.9 g/dl (32.0-36.5); MEAN CORPUSCULAR VOLUME 94.2 fl (80.0-96.0); MONO # 0.5 10^3/uL (0.0-0.8); MONO % 7.6 % (2.0-8.0); NEUTROPHILS # 4.7 10^3/uL (1.5-8.5); NEUTROPHILS % 70.5 % (36.0-66.0); PLATELET COUNT, AUTOMATED 204 10^3/uL (150-450); RED BLOOD COUNT 5.04 10^6/uL (4.30-6.10); WHITE BLOOD COUNT 6.6 10^3/uL (4.0-10.0)
[2022-04-25 11:28] LABS: ALBUMIN 4.2 G/DL (3.2-5.2); ALKALINE PHOSPHATASE 156 U/L (46-116); ALT/SGPT 32 U/L (7.0-40); AST/SGOT 22 U/L (<34); BILIRUBIN,TOTAL 1.9 MG/DL (0.3-1.2); BLOOD UREA NITROGEN 14 MG/DL (9-23); CALCIUM LEVEL 9.4 MG/DL (8.5-10.1); CARBON DIOXIDE LEVEL 31 MMOL/L (20-31); CHLORIDE LEVEL 104 MMOL/L (98-107); CHOLESTEROL LEVEL 121 MG/DL (<200); CHOLESTEROL RISK RATIO 1.97 (<5); CREATININE FOR GFR 0.89 MG/DL (0.70-1.30); GLOMERULAR FILTRATION RATE > 60.0 (>56); GLUCOSE, FASTING 90 MG/DL (60-100); HDL CHOLESTEROL 61.3 MG/DL (>40); LDL CHOLESTEROL 47.7 MG/DL (<100); NON-HDL-C 60 MG/DL; POTASSIUM SERUM 4.7 MMOL/L (3.5-5.1); SODIUM LEVEL 141 MMOL/L (136-145); TOTAL PROTEIN 7.6 G/DL (5.7-8.2); TRIGLYCERIDES LEVEL 60 MG/DL (<150)
[2022-04-25 11:35] LABS: HEMOGLOBIN A1c 5.2 % (4.0-6.0)
== END ==
LOC: M PLALAB 10:06
PROVIDERS: ATTEND Physician Assistant
DX: R42 Dizziness and giddiness (principal); Z86.73 Personal history of transient ischemic attack (TIA), and cerebral infarction without residual deficits; Z12.5 Encounter for screening for malignant neoplasm of prostate

== ENCOUNTER → 2022-07-03 | Outpatient (CLI) | payer OTHER | LOC: M RAD 12:00 | PROVIDERS: ATTEND Physician Assistant | DX: L97.812 Non-pressure chronic ulcer of other part of right lower leg with fat layer exposed (principal) ==

== ENCOUNTER → 2023-01-07 | Outpatient (CLI) | payer OTHER | LOC: M RAD 14:06 | PROVIDERS: ATTEND Physician Assistant | DX: L97.812 Non-pressure chronic ulcer of other part of right lower leg with fat layer exposed (principal) ==

== ENCOUNTER → 2023-01-22 | Outpatient (REF) | payer OTHER ==
[2023-01-22 17:50] LABS: BASO # 0.1 10^3/uL (0.0-0.2); BASO % 0.6 % (0.0-1.0); EOS # 0.2 10^3/uL (0.0-0.5); EOS % 1.9 % (0.0-3.0); HEMATOCRIT 45.5 % (42.0-52.0); HEMOGLOBIN 14.8 g/dl (13.5-17.5); LYMPH # 1.6 10^3/uL (1.5-5.0); MEAN CORPUSCULAR HEMOGLOBIN 30.3 pg (27.0-33.0); MEAN CORPUSCULAR HGB CONC 32.5 g/dl (32.0-36.5); MEAN CORPUSCULAR VOLUME 93.2 fl (80.0-96.0); MONO # 0.7 10^3/uL (0.0-0.8); MONO % 8.2 % (2.0-8.0); NEUTROPHILS # 6.3 10^3/uL (1.5-8.5); PLATELET COUNT, AUTOMATED 217 10^3/uL (150-450); RED BLOOD COUNT 4.88 10^6/uL (4.30-6.10); WHITE BLOOD COUNT 8.9 10^3/uL (4.0-10.0)
[2023-01-22 18:08] LABS: HEMOGLOBIN A1c 5.3 % (4.0-6.0)
[2023-01-22 18:12] LABS: TOTAL IRON BINDING CAPACITY 365 UG/DL (250-425)
[2023-01-22 18:13] LABS: IRON (FE) 83 UG/DL (65-175); PERCENT SATURATION 22.7 % (19.7-50.0)
[2023-01-22 18:21] LABS: ALBUMIN 4.1 G/DL (3.2-5.2); ALKALINE PHOSPHATASE 125 U/L (46-116); ALT/SGPT 36 U/L (7.0-40); AST/SGOT 24 U/L (<34); BILIRUBIN,TOTAL 2.6 MG/DL (0.3-1.2); BLOOD UREA NITROGEN 13 MG/DL (9-23); CALCIUM LEVEL 9.5 MG/DL (8.5-10.1); CARBON DIOXIDE LEVEL 29 MMOL/L (20-31); CHLORIDE LEVEL 105 MMOL/L (98-107); CHOLESTEROL LEVEL 116 MG/DL (<200); CHOLESTEROL RISK RATIO 1.97 (<5); CREATININE FOR GFR 0.97 MG/DL (0.70-1.30); FERRITIN 40.6 NG/ML (10.5-307.3); FREE T4 1.12 NG/DL (0.89-1.76); GLOMERULAR FILTRATION RATE > 60.0 (>56); GLUCOSE, FASTING 79 MG/DL (60-100); HDL CHOLESTEROL 58.8 MG/DL (>40); LDL CHOLESTEROL 42.4 MG/DL (<100); NON-HDL-C 57.2 MG/DL; POTASSIUM SERUM 4.5 MMOL/L (3.5-5.1); SODIUM LEVEL 140 MMOL/L (136-145); THYROID STIMULATING HORMONE 0.907 uIU/ML (0.55-4.78); TOTAL 25(OH) VITAMIN D 20.6 NG/ML (20.0-100.0); TOTAL PROTEIN 7.4 G/DL (5.7-8.2); TRIGLYCERIDES LEVEL 74 MG/DL (<150)
== END ==
LOC: M SFHCPLAZ 16:48
PROVIDERS: ATTEND Physician Assistant
DX: Z13.220 Encounter for screening for lipoid disorders (principal); Z13.1 Encounter for screening for diabetes mellitus; R53.83 Other fatigue; Z12.5 Encounter for screening for malignant neoplasm of prostate

== ENCOUNTER → 2023-03-04 | Outpatient (REF) | payer OTHER ==
[2023-03-04 18:41] LABS: LIPASE 43 U/L (12-53)
[2023-03-04 18:43] LABS: ALBUMIN 4.2 G/DL (3.2-5.2); ALKALINE PHOSPHATASE 125 U/L (46-116); ALT/SGPT 37 U/L (7.0-40); AST/SGOT 26 U/L (<34); BILIRUBIN,TOTAL 2.4 MG/DL (0.3-1.2); BLOOD UREA NITROGEN 13 MG/DL (9-23); CALCIUM LEVEL 10.1 MG/DL (8.5-10.1); CARBON DIOXIDE LEVEL 30 MMOL/L (20-31); CHLORIDE LEVEL 107 MMOL/L (98-107); CREATININE FOR GFR 0.91 MG/DL (0.70-1.30); GLOMERULAR FILTRATION RATE > 60.0 (>56); GLUCOSE, FASTING 83 MG/DL (60-100); SODIUM LEVEL 143 MMOL/L (136-145); TOTAL PROTEIN 7.4 G/DL (5.7-8.2)
[2023-03-04 19:17] LABS: HEPATITIS C VIRUS ABY INDEX 0.08 INDEX (<0.8)
[2023-03-04 19:18] LABS: HEPATITIS B CORE ANTIBODY IGM NEGATIVE (NEGATIVE)
== END ==
LOC: M PLALAB 17:59
PROVIDERS: ATTEND Physician Assistant
DX: R79.89 Other specified abnormal findings of blood chemistry (principal)

== ENCOUNTER → 2023-04-07 | Outpatient (CLI) | payer OTHER | LOC: M RAD 09:23 | PROVIDERS: ATTEND Physician Assistant | DX: R79.89 Other specified abnormal findings of blood chemistry (principal); K76.0 Fatty (change of) liver, not elsewhere classified ==

== ENCOUNTER → 2023-07-17 | Outpatient (REF) | payer OTHER ==
[~2023-07-17] MED LIST changes: -RISP-7 PO; +RISP0.5T82 PO
== END ==
LOC: M SFHCPLAZ 09:47
PROVIDERS: ATTEND Physician Assistant
DX: R05.1 Acute cough (principal); J02.9 Acute pharyngitis, unspecified

== ENCOUNTER → 2023-08-26 | Outpatient (CLI) | payer OTHER ==
[2023-08-26 17:54] LABS: BASO # 0.1 10^3/uL (0.0-0.2); BASO % 0.7 % (0.0-1.0); EOS # 0.1 10^3/uL (0.0-0.5); EOS % 0.7 % (0.0-3.0); HEMATOCRIT 46.7 % (42.0-52.0); HEMOGLOBIN 15.3 g/dl (13.5-17.5); LYMPH # 1.2 10^3/uL (1.5-5.0); LYMPH % 15.9 % (24.0-44.0); MEAN CORPUSCULAR HEMOGLOBIN 30.1 pg (27.0-33.0); MEAN CORPUSCULAR HGB CONC 32.8 g/dl (32.0-36.5); MEAN CORPUSCULAR VOLUME 91.9 fl (80.0-96.0); MONO # 0.5 10^3/uL (0.0-0.8); NEUTROPHILS # 5.7 10^3/uL (1.5-8.5); NEUTROPHILS % 75.4 % (36.0-66.0); PLATELET COUNT, AUTOMATED 169 10^3/uL (150-450); RED BLOOD COUNT 5.08 10^6/uL (4.30-6.10); WHITE BLOOD COUNT 7.5 10^3/uL (4.0-10.0)
[2023-08-26 18:19] LABS: ALBUMIN 4.1 G/DL (3.2-5.2); ALKALINE PHOSPHATASE 119 U/L (46-116); ALT/SGPT 54 U/L (7.0-40); AST/SGOT 46 U/L (<34); BILIRUBIN,TOTAL 2.4 MG/DL (0.3-1.2); BLOOD UREA NITROGEN 12 MG/DL (9-23); CALCIUM LEVEL 9.4 MG/DL (8.5-10.1); CARBON DIOXIDE LEVEL 28 MMOL/L (20-31); CHLORIDE LEVEL 106 MMOL/L (98-107); CREATININE FOR GFR 0.79 MG/DL (0.70-1.30); GLOMERULAR FILTRATION RATE > 60.0 (>56); GLUCOSE, FASTING 90 MG/DL (60-100); POTASSIUM SERUM 4.6 MMOL/L (3.5-5.1); SODIUM LEVEL 142 MMOL/L (136-145); TOTAL PROTEIN 6.7 G/DL (5.7-8.2)
== END ==
LOC: M PLALAB 14:38
PROVIDERS: ATTEND Physician Assistant
DX: M79.89 Other specified soft tissue disorders (principal)

== ENCOUNTER → 2023-10-16 | Outpatient (RCR) | payer OTHER | LOC: M PT 09-16 14:07 | PROVIDERS: ATTEND Physician Assistant | DX: M79.89 Other specified soft tissue disorders (principal) ==

== ENCOUNTER 2023-10-19 15:04 | Outpatient (RCR) | payer OTHER | END 2023-11-15 | LOC: M PT 15:04 | PROVIDERS: ATTEND Physician Assistant | DX: M79.89 Other specified soft tissue disorders (principal) ==

== ENCOUNTER → 2023-11-25 | Outpatient (REF) | payer OTHER ==
[2023-11-25 17:25] LABS: BASO # 0.1 10^3/uL (0.0-0.2); BASO % 0.6 % (0.0-1.0); EOS # 0.1 10^3/uL (0.0-0.5); EOS % 1.3 % (0.0-3.0); HEMATOCRIT 45.5 % (42.0-52.0); HEMOGLOBIN 15.1 g/dl (13.5-17.5); LYMPH # 1.2 10^3/uL (1.5-5.0); LYMPH % 14.4 % (24.0-44.0); MEAN CORPUSCULAR HEMOGLOBIN 30.8 pg (27.0-33.0); MEAN CORPUSCULAR HGB CONC 33.2 g/dl (32.0-36.5); MEAN CORPUSCULAR VOLUME 92.9 fl (80.0-96.0); MONO # 0.8 10^3/uL (0.0-0.8); MONO % 9.3 % (2.0-8.0); NEUTROPHILS # 6.3 10^3/uL (1.5-8.5); NEUTROPHILS % 74.2 % (36.0-66.0); PLATELET COUNT, AUTOMATED 225 10^3/uL (150-450); WHITE BLOOD COUNT 8.5 10^3/uL (4.0-10.0)
[2023-11-25 17:49] LABS: ALBUMIN 4.2 G/DL (3.2-5.2); ALKALINE PHOSPHATASE 139 U/L (46-116); ALT/SGPT 29 U/L (7.0-40); AST/SGOT 21 U/L (<34); BILIRUBIN,TOTAL 2.9 MG/DL (0.3-1.2); BLOOD UREA NITROGEN 12 MG/DL (9-23); CALCIUM LEVEL 9.6 MG/DL (8.5-10.1); CARBON DIOXIDE LEVEL 28 MMOL/L (20-31); CHLORIDE LEVEL 107 MMOL/L (98-107); CREATININE FOR GFR 0.95 MG/DL (0.70-1.30); GLOMERULAR FILTRATION RATE > 60.0 (>56); GLUCOSE, FASTING 85 MG/DL (60-100); MAGNESIUM LEVEL 2.1 MG/DL (1.8-2.4); POTASSIUM SERUM 3.9 MMOL/L (3.5-5.1); SODIUM LEVEL 139 MMOL/L (136-145); TOTAL PROTEIN 6.9 G/DL (5.7-8.2)
== END ==
LOC: M PLALAB 16:57
PROVIDERS: ATTEND Physician Assistant
DX: R60.0 Localized edema (principal); F41.9 Anxiety disorder, unspecified; E80.4 Gilbert syndrome

== ENCOUNTER 2024-01-25 14:59 | Outpatient (RCR) | payer OTHER | END 2024-02-15 | LOC: M PT 14:59 | PROVIDERS: ATTEND Physician Assistant | DX: M79.89 Other specified soft tissue disorders (principal) ==

== ENCOUNTER 2024-04-25 14:43 | Outpatient (RCR) | payer OTHER | END 2024-05-17 | LOC: M PT 14:43 | PROVIDERS: ATTEND Physician Assistant | DX: M79.89 Other specified soft tissue disorders (principal) ==

== ENCOUNTER → 2024-05-19 | Outpatient (CLI) | payer OTHER ==
[2024-05-19 18:17] LABS: HEMOGLOBIN 15.2 g/dl (13.5-17.5); MEAN CORPUSCULAR HEMOGLOBIN 30.6 pg (27.0-33.0); MEAN CORPUSCULAR HGB CONC 32.3 g/dl (32.0-36.5); MEAN CORPUSCULAR VOLUME 94.8 fl (80.0-96.0); PLATELET COUNT, AUTOMATED 214 10^3/uL (150-450); RED BLOOD COUNT 4.96 10^6/uL (4.30-6.10); WHITE BLOOD COUNT 8.3 10^3/uL (4.0-10.0)
[2024-05-19 18:28] LABS: HEMOGLOBIN A1c 5.3 % (4.0-6.0)
[2024-05-19 18:35] LABS: ALBUMIN 4.3 G/DL (3.2-5.2); ALKALINE PHOSPHATASE 129 U/L (40-129); ALT/SGPT 27 U/L (7.0-40); AST/SGOT 25 U/L (<34); BILIRUBIN,TOTAL 3.4 MG/DL (0.3-1.2); BLOOD UREA NITROGEN 13 MG/DL (9-23); CALCIUM LEVEL 9.7 MG/DL (8.5-10.1); CARBON DIOXIDE LEVEL 30 MMOL/L (20-31); CHLORIDE LEVEL 106 MMOL/L (98-107); CHOLESTEROL LEVEL 115 MG/DL (<200); CHOLESTEROL RISK RATIO 2.09 (<5); CREATININE FOR GFR 0.91 MG/DL (0.70-1.30); GLOMERULAR FILTRATION RATE > 60.0 (>56); GLUCOSE, FASTING 100 MG/DL (60-100); HDL CHOLESTEROL 54.9 MG/DL (>40); LDL CHOLESTEROL 46.5 MG/DL (<100); NON-HDL-C 60.1 MG/DL; POTASSIUM SERUM 4.2 MMOL/L (3.5-5.1); SODIUM LEVEL 143 MMOL/L (136-145); TRIGLYCERIDES LEVEL 68 MG/DL (<150)
== END ==
LOC: M PLALAB 14:50
PROVIDERS: ATTEND Nurse Practitioner Family
DX: Z13.1 Encounter for screening for diabetes mellitus (principal)

== ENCOUNTER → 2024-08-31 | Outpatient (CLI) | payer OTHER | LOC: M RAD 09:32 | PROVIDERS: ATTEND Nurse Practitioner Family | DX: R93.89 Abnormal findings on diagnostic imaging of other specified body structures (principal) ==

== ENCOUNTER → 2024-09-26 | Outpatient (CLI) | payer OTHER ==
[2024-09-26 16:05] LABS: HEMATOCRIT 47.7 % (42.0-52.0); HEMOGLOBIN 15.4 g/dl (13.5-17.5); MEAN CORPUSCULAR HEMOGLOBIN 30.7 pg (27.0-33.0); MEAN CORPUSCULAR HGB CONC 32.3 g/dl (32.0-36.5); MEAN CORPUSCULAR VOLUME 95.2 fl (80.0-96.0); PLATELET COUNT, AUTOMATED 203 10^3/uL (150-450); RED BLOOD COUNT 5.01 10^6/uL (4.30-6.10); WHITE BLOOD COUNT 7.4 10^3/uL (4.0-10.0)
[2024-09-26 16:32] LABS: ALBUMIN 4.3 G/DL (3.2-5.2); ALKALINE PHOSPHATASE 155 U/L (40-129); ALT/SGPT 29 U/L (7.0-40); AST/SGOT 21 U/L (<34); BILIRUBIN,TOTAL 2.2 MG/DL (0.3-1.2); BLOOD UREA NITROGEN 15 MG/DL (9-23); CALCIUM LEVEL 9.4 MG/DL (8.5-10.1); CARBON DIOXIDE LEVEL 31 MMOL/L (20-31); CHLORIDE LEVEL 104 MMOL/L (98-107); CREATININE FOR GFR 0.91 MG/DL (0.70-1.30); GLOMERULAR FILTRATION RATE > 90.0 (>56); GLUCOSE, FASTING 94 MG/DL (60-100); IRON (FE) 57 UG/DL (65-175); MAGNESIUM LEVEL 2.2 MG/DL (1.8-2.4); PERCENT SATURATION 16.5 % (19.7-50.0); POTASSIUM SERUM 4.4 MMOL/L (3.5-5.1); SODIUM LEVEL 142 MMOL/L (136-145); TOTAL IRON BINDING CAPACITY 346 UG/DL (250-425); TOTAL PROTEIN 7.1 G/DL (5.7-8.2)
[2024-09-26 16:34] LABS: FERRITIN 36.3 NG/ML (10.5-307.3); FOLATE 18.1 NG/ML (>5.4)
[2024-09-26 16:35] LABS: VITAMIN B12 LEVEL 423 PG/ML (211-911)
== END ==
LOC: M PLALAB 12:40
PROVIDERS: ATTEND Nurse Practitioner Family
DX: R42 Dizziness and giddiness (principal)

== ENCOUNTER → 2025-04-24 | Outpatient (CLI) | payer OTHER, MEDICAID ==
[~2025-04-24] MED LIST changes: -IBUP-1022 PO; +IBUP600T42 PO
[2025-04-24 15:40] LABS: BASO # 0.1 10^3/uL (0.0-0.2); BASO % 0.8 % (0.0-1.0); EOS # 0.1 10^3/uL (0.0-0.5); EOS % 1.6 % (0.0-3.0); LYMPH # 1.1 10^3/uL (1.5-5.0); LYMPH % 13.6 % (24.0-44.0); MONO # 0.6 10^3/uL (0.0-0.8); MONO % 8.3 % (2.0-8.0); NEUTROPHILS # 5.9 10^3/uL (1.5-8.5); NEUTROPHILS % 75.6 % (36.0-66.0); PLATELET COUNT, AUTOMATED 235 10^3/uL (150-450)
[2025-04-24 15:46] LABS: C REACTIVE PROTEIN QUANTITATIV < 0.50 MG/DL (<1.0)
[2025-04-24 15:47] LABS: CALCIUM LEVEL 9.6 MG/DL (8.5-10.1); CARBON DIOXIDE LEVEL 30 MMOL/L (20-31); CHLORIDE LEVEL 102 MMOL/L (98-107); CHOLESTEROL LEVEL 119 MG/DL (<200); CHOLESTEROL RISK RATIO 1.87 (<5); CREATININE FOR GFR 0.85 MG/DL (0.70-1.30); GLOMERULAR FILTRATION RATE > 90.0 (>56); LDL CHOLESTEROL 40.0 MG/DL (<100); NON-HDL-C 55.4 MG/DL; POTASSIUM SERUM 4.2 MMOL/L (3.5-5.1); SODIUM LEVEL 142 MMOL/L (136-145); TRIGLYCERIDES LEVEL 77 MG/DL (<150)
[2025-04-24 16:00] LABS: ESTIMATED AVERAGE GLUCOSE 111.0 MG/DL (60-110)
== END ==
LOC: M PLALAB 13:28
PROVIDERS: ATTEND Student in an Organized Health Care Education/Training Program
DX: Z00.00 Encounter for general adult medical examination without abnormal findings (principal); L03.115 Cellulitis of right lower limb; E78.2 Mixed hyperlipidemia; I10 Essential (primary) hypertension; R06.89 Other abnormalities of breathing

== ENCOUNTER 2025-04-26 15:00 | Outpatient (RCR) | payer OTHER | END 2025-05-17 | LOC: M PT 15:00 | PROVIDERS: ATTEND Physician Assistant | DX: M79.89 Other specified soft tissue disorders (principal) ==